=== PATIENT | female | born 1965 | race Caucasian/White ===

== ENCOUNTER 2017-10-14 07:43 | Emergency (ER) | payer BC ==
[2017-10-14 07:52] VITALS: BP 109/72
[2017-10-14] MEDS ORDERED: NORMAL SALINE 500 ML IV ONE (08:20)
[2017-10-14] MEDS ORDERED: HYDROMORPHONE HCL INJ/PF 2 MG/ML AMPULE IV ONE (08:22)
[2017-10-14] MEDS ORDERED: ONDANSETRON HCL INJ/PF 4 MG/2 ML SDV IV ONE ×2 (08:23→11:38)
--- NOTE | 2017-10-14 08:28 | ER Document Report ---
ED General - General Chief Complaint: Abdominal Pain Stated Complaint: ABDOMINAL PAIN Time Seen by Provider: 10/14/17 08:09 Notes: 52-year-old female with history of pancreatic cancer presents to the ER complaining of abdominal pain. Patient is being cared for by the cancer treatment centers of [facility] in [place]. The patient was seen at [facility] ER last night 2. Pain was treated and discharged home. Patient still complaining of pain in his come here. She is requesting a CT scan. Patient has no local contacts for her cancer. She is taking oral medication but has not had any chemo or radiation. The patient denies any fever chills. Complains of abdominal pain in the epigastrium she describes as 10 out of 10 severe this is been typical but more so on the last several days she has ever had. She states occasionally she will throw up clear but no hematemesis or coffee-ground emesis denies any black bloody or tarry stools. Denies chest pain denies shortness of breath. TRAVEL OUTSIDE OF THE [place] IN LAST 30 DAYS: No - Related Data Allergies/Adverse Reactions: iodine [Iodine] Allergy (Verified 10/14/17 08:11) Anaphylaxis latex Allergy (Verified 10/14/17 08:11) Past Medical History - Social History Smoking Status: Unknown if Ever Smoked Chew tobacco use (# tins/day): No Frequency of alcohol use: None Drug Abuse: None Family History: Hyperlipidemia Patient has suicidal ideation: No Patient has homicidal ideation: No - Past Medical History Cardiac Medical History: Reports: Hx Hypercholesterolemia Pulmonary Medical History: Denies: Hx Tuberculosis Renal/ Medical History: Denies: Hx Peritoneal Dialysis GI Medical History: Reports: Hx Hiatal Hernia, Hx Colonoscopy, Hx Endoscopy Past Surgical History: Reports: Hx Abdominal Surgery - hernia x2, Hx Cholecystectomy, Hx Herniorrhaphy, Hx Umbilical Hernia - Immunizations Hx Diphtheria, Pertussis, Tetanus Vaccination: No Review of Systems - Review of Systems Constitutional: No symptoms reported EENT: No symptoms reported Cardiovascular: No symptoms reported. denies: Chest pain Respiratory: No symptoms reported Gastrointestinal: No symptoms reported, Abdomen distended, Abdominal pain, Nausea, Vomiting. denies: Blood in vomit, Black stools, Rectal bleeding Genitourinary: No symptoms reported Female Genitourinary: No symptoms reported Musculoskeletal: No symptoms reported Skin: No symptoms reported Hematologic/Lymphatic: No symptoms reported Neurological/Psychological: No symptoms reported -: Yes All other systems reviewed and negative Physical Exam - Vital signs Vitals: Temp Pulse Resp BP Pulse Ox 97.7 F 113 H 16 109/72 91 L 10/14/17 07:49 10/14/17 07:49 10/14/17 07:49 10/14/17 07:49 10/14/17 07:49 - Notes Notes: GENERAL_APPEARANCE: well_nourished, alert, cooperative, appears uncomfortable VITALS: reviewed, see vital signs table. HEAD: no_swelling\tenderness on the head. EYES: PERRL, EOMI, conjunctiva_clear. NOSE: no_nasal_discharge. MOUTH: (-)decreased moisture. THROAT: no_tonsilar_inflammation, no_airway_obstruction. no_lymphadenopathy NECK: supple, no_neck_tenderness, (-)thyromegaly. BACK: no_back_tenderness. CHEST_WALL: no_chest_tenderness. LUNGS: no_wheezing, no_rales, no_rhonchi, (-)accessory muscle use, good air exchange bilateral. HEART: normal_rate, normal_rhythm, normal_S1, normal_S2, (-)S3, (-)S4, no_ murmur, no_rub. ABDOMEN: Slight distention, epigastric tenderness, soft,(-)guarding, (-)rebound , no_organomegaly, no_abd_masses. EXTREMITIES: good pulses in all_extremities, no_swelling\tenderness in the extremities, no_edema. SKIN: warm, dry, good_color, no_rash. MENTAL_STATUS: speech_clear, oriented_X_3, normal_affect, responds_ appropriately to questions. Course - Re-evaluation Re-evalutation: 10/14/17 08:27 52-year-old female who presents with abdominal pain nausea. The patient was seen several times last night and a ER in a another county. She was sent home. The patient did have a CT scan October 04 but is requesting another. We will get a repeat CT scan she is allergic to contrast. We will give the patient some IV fluids pain and nausea medicine. Check her labs and I will call Dr. Hand at the [facility] in [place]. 04/05/18 11:22 \ Spoke with Dr. Sagastume in [facility] in [place] -- on her visit there 10/04 -- Bilirubin was normal then. Today the bilirubin is elevated at 1.7. There is concern that there may be a ductal obstruction. Gallbladder surgically absent. I called [facility] which was the patient's preference for transfer there is no gastroenterology web content specialist today in case ERCP is needed. I spoke with the resident and Dr. Nunn who will accept the patient we are awaiting bed status. Continue to give IV fluids and pain medicine. - Vital Signs Vital signs: Temp Pulse Resp BP Pulse Ox 97.7 F 113 H 16 109/72 91 L 10/14/17 07:49 10/14/17 07:49 10/14/17 07:49 10/14/17 07:49 10/14/17 07:49 - Laboratory Result Diagrams: 10/14/17 08:58 10/14/17 08:58 Laboratory results interpreted by me: 10/14/17 10/14/17 10/14/17 08:58 08:58 10:04 RBC 3.60 L MCV 104 H MCH 33.8 H RDW 17.9 H Plt Count 118 L Sodium 136.7 L Creatinine 0.44 L Glucose 119 H Total Bilirubin 1.7 H Direct Bilirubin 0.8 H Alkaline Phosphatase 622 H Total Protein 5.7 L Albumin 3.0 L Urine Ketones 20 H Urine Urobilinogen 4.0 H Ur Leukocyte Esterase TRACE H Discharge - Discharge Clinical Impression: Vomiting Pancreatic cancer Qualifiers: Pancreatic malignancy location: other parts of pancreas Qualified Code(s): C25.7 - Malignant neoplasm of other parts of pancreas Condition: Fair Disposition: [facility] Unit Admitted: Medical Floor
[2017-10-14] MEDS ORDERED: FENTANYL CITRATE INJ/PF 100 MCG/2 ML AMPUL IV ONE ×2 (08:37→10:43)
[2017-10-14 09:21] LABS: ABSOLUTE BASOPHILS # (AUTO) 0.1 10^3/uL (0.0-0.2); ABSOLUTE EOSINOPHILS # (AUTO) 0.3 10^3/uL (0.0-0.6); ABSOLUTE LYMPHOCYTES (AUTO) 1.7 10^3/uL (0.5-4.7); ABSOLUTE MONOCYTES (AUTO) 0.6 10^3/uL (0.1-1.4); ABSOLUTE NEUT (AUTO) 6.3 10^3/uL (1.7-8.2); BASOPHILS % (AUTO) 0.8 % (0-2); EOSINOPHILS % (AUTO) 3.4 % (0-6); HEMATOCRIT 37.4 % (36.0-47.0); HEMOGLOBIN 12.2 g/dL (12.0-15.5); LYMPHOCYTES % (AUTO) 18.6 % (13-45); MEAN CORPUSCULAR HEMOGLOBIN 33.8 pg (27.0-33.4); MEAN CORPUSCULAR HGB CONC 32.6 g/dL (32.0-36.0); MEAN CORPUSCULAR VOLUME 104 fl (80-97); MONOCYTES % (AUTO) 6.2 % (3-13); PLATELET COUNT 118 10^3/uL (150-450); RED CELL DISTRIBUTION WIDTH 17.9 % (11.5-14.0); TOTAL CELLS COUNTED % (AUTO) 100 %; WHITE BLOOD COUNT 8.9 10^3/uL (4.0-10.5)
--- NOTE | 2017-10-14 09:32 | RADIOLOGY REPORT (SQ) ---
EXAM DESCRIPTION: CT ABD/PELVIS NO ORAL OR IV COMPLETED DATE/TIME: 10/14/2017 8:49 am REASON FOR STUDY: Abdominal pain abdominal pain COMPARISON: None. TECHNIQUE: CT scan of the abdomen and pelvis performed without intravenous or oral contrast. Images reviewed with lung, soft tissue, and bone windows. Reconstructed coronal and sagittal MPR images revi ewed. All images stored on PACS. All CT scanners at this facility use dose modulation, iterative reconstruction, and/or weight based d osing when appropriate to reduce radiation dose to as low as reasonably achievable (ALARA). [facility]: Dose Right [facility]: CareDose [facility]: Dose Right [facility]: Teradose 4D [facility]: Smart [employer] RADIATION DOSE: CT Rad equipment meets quality standard of care and radiation dose reduction techniq ues were employed. CTDIvol: 6.9 mGy. DLP: 365 mGy-cm.mGy. LIMITATIONS: None. FINDINGS: LOWER CHEST: Patchy left basilar airspace disease is present atelectasis versus pneumonia NON-CONTRASTED LIVER, SPLEEN, ADRENALS: Normal size liver with minimal intrahepatic biliary ductal pr ominence, similar compared to 07/14/2015. No discrete liver nodules on today's non contrasted images. 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 There are prominent left upper quad rant mesenteric venous collaterals from the splenic hilum to the superior mesenteric vein. Adrenal g lands unremarkable. PANCREAS: In the mid body of the pancreas, a 3.5 cm area of dense pancreatic parenchymal calcificatio n is present with atrophy of the tail distally. This likely represents an area of chronic pancreatit is. No current peripancreatic inflammatory change or pseudocyst is identified. GALLBLADDER: Surgically absent RIGHT KIDNEY AND URETER: A right-sided double-J stent is in place. No right-sided hydronephrosis. N o gross cysts or masses. 8 mm and 4 mm right lower pole intrarenal nonobstructive calculi, 400 Houn sfield units. No right hydroureter. LEFT KIDNEY AND URETER: No suspicious masses. Assessment limited by lack of IV contrast. No signifi cant calcifications. No hydronephrosis or hydroureter. AORTA AND RETROPERITONEUM: No aneurysm. No retroperitoneal masses or adenopathy. BOWEL AND PERITONEAL CAVITY: No obvious masses or inflammatory changes. No free fluid. APPENDIX: Normal. PELVIS, BLADDER, AND ABDOMINAL WALL:No abnormal masses. No free fluid. Bladder normal. Normal size f emale pelvic organs. BONES: New subtle foci of bony sclerosis in the bilateral proximal femoral metaphysis these, the left posterosuperior and right posterior iliac crest, the leftward half of the sacrum, and multiple lumba r vertebral bodies. Question metastatic disease. OTHER: No other significant finding. IMPRESSION: No CT evidence of acute pancreatitis. There is evidence of chronic calcific pancreatiti s and chronic splenic vein thrombosis Right-sided double-J stent in good positioning. No right hydronephrosis or hydroureter. Post cholecystectomy New multiple sclerotic foci throughout the visualized skeleton. Metastatic disease could not be excl uded. Left sacral insufficiency fracture with sclerosis may be present. COMMENT: Quality ID # [id number]: Final reports with documentation of one or more dose reduction techniques (e.g., Automated exposure control, adjustment of the mA and/or kV according to patient size, use of iterative reconstruction technique) TECHNICAL DOCUMENTATION: JOB ID: [id number] [email or web address]- All Rights Reserved Reading location - IP/workstation name: [email or web address]
[2017-10-14 09:37] LABS: ALANINE AMINOTRANSFERASE 24 U/L (9-52); ALKALINE PHOSPHATASE 622 U/L (38-126); ANION GAP 10 (5-19); ASPARTATE AMINO TRANSFERASE 18 U/L (14-36); BILIRUBIN,DIRECT 0.8 mg/dL (0.0-0.4); BILIRUBIN,TOTAL 1.7 mg/dL (0.2-1.3); BLOOD UREA NITROGEN 10 mg/dL (7-20); CALCIUM 8.7 mg/dL (8.4-10.2); CARBON DIOXIDE 23 mmol/L (22-30); CHLORIDE 104 mmol/L (98-107); GLUCOSE 119 mg/dL (75-110); LIPASE 58.4 U/L (23-300); POTASSIUM 4.3 mmol/L (3.6-5.0); SODIUM 136.7 mmol/L (137-145); TOTAL PROTEIN 5.7 g/dL (6.3-8.2)
[2017-10-14 10:29] LABS: APPEARANCE,URINE CLEAR; BILIRUBIN,URINE NEGATIVE (NEGATIVE); COLOR,URINE YELLOW; GLUCOSE, URINE NEGATIVE (NEGATIVE); KETONES,URINE 20 mg/dL (NEGATIVE); LEUKOCYTE ESTERASE,URINE TRACE (NEGATIVE); NITRITE,URINE NEGATIVE (NEGATIVE); PROTEIN,URINE NEGATIVE (NEGATIVE); URINE SPECIFIC GRAVITY 1.014
[2017-10-14] MEDS ORDERED: DEXTROSE 5%-NORMAL SALINE 1,000 ML IV ONE (11:38)
[2017-10-14] MEDS ORDERED: MORPHINE SULFATE 10 MG/ML INJ IV ONE (12:07)
[2017-10-14] MEDS: ONDANSETRON HCL INJ/PF 4 MG/2 ML SDV IV PRN ×2 (15:17→19:59)
[2017-10-14] MEDS: MORPHINE SULFATE 10 MG/ML INJ IV PRN ×2 (15:18→19:59)
== END 2017-10-14 21:35 | disposition short-term general hospital (02) ==
LOC: ER 07:43
DX: C25.9 Malignant neoplasm of pancreas, unspecified (principal); Z79.899 Other long term (current) drug therapy; R10.13 Epigastric pain; R11.2 Nausea with vomiting, unspecified; Z91.040 Latex allergy status; Z90.49 Acquired absence of other specified parts of digestive tract; Z87.892 Personal history of anaphylaxis; Z91.041 Radiographic dye allergy status
CPT/HCPCS: 36591; 96376; 99285; 96361; 96374; 96375; 36415; 83690; 85025; 80053; 81001; 74176; J3010; J2270; J2405; J7040

== ENCOUNTER 2017-11-28 20:17 | Inpatient (IN) | payer BC ==
[2017-11-28] MEDS ORDERED: IPRATROPIUM/ALBUTEROL 0.5-2.5 MG/3 ML AMPUL NEB ONE (20:27)
--- NOTE | 2017-11-28 20:31 | ER Document Report ---
ED General - General Stated Complaint: SHORTNESS OF BREATH Time Seen by Provider: 11/28/17 20:24 Cannot obtain history due to: Mentally challenged Notes: Patient is a 52-year-old female with a past medical history of pancreatic cancer currently undergoing chemotherapy, history of COPD with oxygen dependence at baseline who presents by EMS with 1 week of persistent cough, shortness of breath, and feeling more fatigued than normal. She also states that she has not been able to take any of her medications for the past week due to difficulty swallowing. Patient is a very poor historian, unable to give me essentially any additional details beyond her initial chief complaint. She is oriented only to person. TRAVEL OUTSIDE OF THE [place] IN LAST 30 DAYS: No - Related Data Allergies/Adverse Reactions: iodine [Iodine] Allergy (Verified 10/14/17 08:11) Anaphylaxis latex Allergy (Verified 10/14/17 08:11) Past Medical History - General Information source: Patient, Emergency Med Personnel, [facility] Records Cannot obtain history due to: Mentally challenged, Altered mental status - Social History Smoking Status: Former Smoker Frequency of alcohol use: None Drug Abuse: None Lives with: Family Family History: Reviewed & Not Pertinent, Hyperlipidemia - Past Medical History Cardiac Medical History: Reports: Hx Hypercholesterolemia Pulmonary Medical History: Denies: Hx Tuberculosis Renal/ Medical History: Denies: Hx Peritoneal Dialysis GI Medical History: Reports: Hx Hiatal Hernia, Hx Colonoscopy, Hx Endoscopy Past Surgical History: Reports: Hx Abdominal Surgery - hernia x2, Hx Cholecystectomy, Hx Herniorrhaphy, Hx Umbilical Hernia - Immunizations Hx Diphtheria, Pertussis, Tetanus Vaccination: No Review of Systems - Review of Systems Notes: Constitutional: Negative for fever. HENT: Negative for sore throat. Eyes: Negative for visual changes. Cardiovascular: Negative for chest pain. Respiratory: Positive for cough and shortness of breath. Gastrointestinal: Positive for abdominal distention Genitourinary: Negative for dysuria. Musculoskeletal: Negative for back pain. Skin: Negative for rash. Neurological: Negative for headaches, weakness or numbness. 10 point ROS negative except as marked above and in HPI. Physical Exam - Vital signs Vitals: Resp 13 11/28/17 20:46 Notes: PHYSICAL EXAMINATION: GENERAL: Appears much older than stated age, chronically ill in appearance but in no distress HEAD: Atraumatic, normocephalic. EYES: Pupils equal round and reactive to light, extraocular movements intact, mildly icteric sclera, conjunctiva are normal. ENT: nares patent, oropharynx clear without exudates. Extremely dry mucous membranes. NECK: Normal range of motion, supple without lymphadenopathy LUNGS: Slightly diminished at the bases bilaterally. No wheezes or rales. HEART: Regular rate and rhythm without murmurs ABDOMEN: Soft but distended abdomen, nontender, normoactive bowel sounds. No guarding, no rebound. No masses appreciated. EXTREMITIES: Normal range of motion, no pitting or edema. No cyanosis. NEUROLOGICAL: No focal neurological deficits. Moves all extremities spontaneously and on command. PSYCH: Somewhat somnolent, oriented only to person SKIN: Poor skin turgor, dodson yellowish tint to the skin Course - Re-evaluation Re-evalutation: 11/28/17 20:29 Patient presents profoundly confused, oriented only to person. She complains of cough and shortness of breath but does not appear to understand exactly what is going on or why she is here. She believes it is 1982, she does not know who the president is and she is unable to tell me when she last received chemotherapy. Patient has apparent abdominal ascites some mild upper abdominal tenderness on examination and a rattling cough although but no overt diminished breath sounds on exam. She has oxygen dependency at baseline of 2 L by nasal cannula. She is in no overt respiratory distress. Patient states that she follows in the cancer centers of [place] for treatment. Review of records shows in October she was transferred to [facility] when she presented with abdominal pain and elevated bilirubin. 11/29/17 00:23 CT scan of the abdomen pelvis shows a new 12 cm lesion in the right lobe of the liver, multiple new bony lesions consistent with rapid progression of the patient's pancreatic cancer despite ongoing chemotherapy. Patient's chest x- ray also shows a bibasilar pneumonia. She has been started on levofloxacin. I have discussed at length with the patient and the family that she is terminally ill at this time point with rapid progression of her malignancy that is failing to respond to chemotherapy. I have advocated that the patient be made hospice. The family is currently considering this. I have discussed with the hospitalist for admission 11/29/17 0100 After reviewing the poor prognosis the family and patient have agreed to a DNR/ DNI status and are interested in hospice at time of discharge. They have agreed to IV antibiotics while the patient is in the hospital but they are otherwise planning for comfort measures. I have discussed this with the hospitalist who is excepted for admission. - Vital Signs Vital signs: Temp Pulse Resp BP Pulse Ox 97.4 F 95 19 109/53 L 96 11/29/17 03:00 11/29/17 03:00 11/29/17 03:00 11/29/17 03:00 11/29/17 03:00 - Laboratory Result Diagrams: 11/28/17 21:47 11/28/17 21:47 Laboratory results interpreted by me: 11/28/17 11/28/17 21:47 21:47 WBC 16.4 H RBC 2.94 L Hgb 10.5 L Hct 32.1 L MCV 109 H MCH 35.7 H RDW 24.0 H Plt Count 58 L Seg Neuts % (Manual) 79 H Band Neutrophils % 9 H Lymphocytes % (Manual) 5 L Abs Neuts (Manual) 14.4 H Absolute Eos (Manual) 0.7 H Creatinine 0.40 L Glucose 131 H Total Bilirubin 3.5 H Direct Bilirubin 2.3 H AST 45 H Alkaline Phosphatase 1111 H Total Protein 6.0 L Albumin 2.7 L - Diagnostic Test Radiology reviewed: Image reviewed, Reports reviewed Radiology results interpreted by me: 11/29/17 04:03 CT head: No acute intracranial bleed or evidence of metastases Chest x-ray: Bibasilar infiltrates - EKG Interpretation by Me Additional EKG results interpreted by me: 11/28/17 21:42 Sinus rhythm. Rate 96. No ST elevations or depressions. QTC is 420. Discharge - Discharge Clinical Impression: Cough, Shortness of breath Altered mental status Qualifiers: Altered mental status type: disorientation Qualified Code(s): R41.0 - Disorientation, unspecified Pancreatic cancer Qualifiers: Pancreatic malignancy location: unspecified Qualified Code(s): C25.9 - Malignant neoplasm of pancreas, unspecified Condition: Fair Disposition: ADMITTED INPATIENT Admitting Provider: Hospitalist Unit Admitted: Telemetry
[2017-11-28] MEDS ORDERED: NORMAL SALINE 1000 ML 1,000 ML IV ONE (21:38)
[2017-11-28 22:02] LABS: HEMATOCRIT 32.1 % (36.0-47.0); HEMOGLOBIN 10.5 g/dL (12.0-15.5); MEAN CORPUSCULAR HEMOGLOBIN 35.7 pg (27.0-33.4); MEAN CORPUSCULAR HGB CONC 32.6 g/dL (32.0-36.0); MEAN CORPUSCULAR VOLUME 109 fl (80-97); RED BLOOD COUNT 2.94 10^6/uL (3.72-5.28); WHITE BLOOD COUNT 16.4 10^3/uL (4.0-10.5)
[2017-11-28 22:05] LABS: PLATELET COUNT 58 10^3/uL (150-450)
[2017-11-28 22:17] LABS: ALANINE AMINOTRANSFERASE 34 U/L (9-52); ALBUMIN 2.7 g/dL (3.5-5.0); ALKALINE PHOSPHATASE 1111 U/L (38-126); ANION GAP 10 (5-19); ASPARTATE AMINO TRANSFERASE 45 U/L (14-36); BILIRUBIN,DIRECT 2.3 mg/dL (0.0-0.4); BILIRUBIN,TOTAL 3.5 mg/dL (0.2-1.3); BLOOD UREA NITROGEN 20 mg/dL (7-20); CALCIUM 8.4 mg/dL (8.4-10.2); CARBON DIOXIDE 29 mmol/L (22-30); CHLORIDE 99 mmol/L (98-107); GLUCOSE 131 mg/dL (75-110); LIPASE 28.5 U/L (23-300); POTASSIUM 3.6 mmol/L (3.6-5.0)
[2017-11-28 22:23] LABS: ABSOLUTE LYMPHOCYTES# (MANUAL) 0.8 10^3/uL (0.5-4.7); ABSOLUTE MONOCYTES # (MANUAL) 0.5 10^3/uL (0.1-1.4); ABSOLUTE NEUTROPHILS# (MANUAL) 14.4 10^3/uL (1.7-8.2); BAND NEUTROPHILS % (MANUAL) 9 % (3-5); BASOPHILS % (MANUAL) 0 % (0-2); EOSINOPHILS % (MANUAL) 4 % (0-6); LYMPHOCYTES % (MANUAL) 5 % (13-45); MONOCYTES % (MANUAL) 3 % (3-13); SEGMENTED NEUTROPHILS % (MAN) 79 % (42-78); TOTAL CELLS COUNTED 100
[2017-11-28 22:29] LABS: HYPOCHROMASIA 1+; POIKILOCYTOSIS SLIGHT; POLYCHROMASIA 1+; TOXIC VACUOLATION PRESENT
[2017-11-28 22:30] LABS: ANISOCYTOSIS 3+; PLATELET COMMENT DECREASED; SCHISTOCYTES SLIGHT; TARGET CELLS SLIGHT
--- NOTE | 2017-11-28 23:04 | RADIOLOGY REPORT (SQ) ---
EXAM DESCRIPTION: CT HEAD WITHOUT COMPLETED DATE/TIME: 11/28/2017 10:46 pm REASON FOR STUDY: ams COMPARISON: None. TECHNIQUE: Axial images acquired through the brain without intravenous contrast. Images reviewed wi th bone, brain and subdural windows. Images stored on PACS. All CT scanners at this facility use dose modulation, iterative reconstruction, and/or weight based d osing when appropriate to reduce radiation dose to as low as reasonably achievable (ALARA). [facility]: Dose Right [facility]: CareDose [facility]: Dose Right [facility]: Teradose 4D [facility]: Smart [employer] RADIATION DOSE: CT Rad equipment meets quality standard of care and radiation dose reduction techniq ues were employed. CTDIvol: 53.2 mGy. DLP: 1097 mGy-cm. mGy. LIMITATIONS: Moderate obliquity. FINDINGS: VENTRICLES: Normal size and contour. CEREBRUM: No masses. No hemorrhage. No midline shift. No evidence for acute infarction. Normal gra y/white matter differentiation. No areas of low density in the white matter. CEREBELLUM: No masses. No hemorrhage. No alteration of density. No evidence for acute infarction. EXTRAAXIAL SPACES: No fluid collections. No masses. ORBITS AND GLOBE: No intra- or extraconal masses. Normal contour of globe without masses. CALVARIUM: No fracture. PARANASAL SINUSES: No fluid or mucosal thickening. SOFT TISSUES: No mass or hematoma. OTHER: No other significant finding. IMPRESSION: No acute intracranial findings. EVIDENCE OF ACUTE STROKE: NO. COMMENT: Quality ID # 436: Final reports with documentation of one or more dose reduction techniques (e.g., Automated exposure control, adjustment of the mA and/or kV according to patient size, use of iterative reconstruction technique) TECHNICAL DOCUMENTATION: JOB ID: [id number] [place]-72 2010 [employer]- All Rights Reserved Reading location - IP/workstation name: [email or web address]
--- NOTE | 2017-11-28 23:10 | RADIOLOGY REPORT (SQ) ---
EXAM DESCRIPTION: CHEST SINGLE VIEW COMPLETED DATE/TIME: 11/28/2017 10:24 pm REASON FOR STUDY: sob COMPARISON: 08/20/2015 EXAM PARAMETERS: NUMBER OF VIEWS: One view. TECHNIQUE: Single frontal radiographic view of the chest acquired. RADIATION DOSE: NA LIMITATIONS: None. FINDINGS: LUNGS AND PLEURA: Bibasilar airspace -nodular opacities. Small left pleural effusion. No pneumothorax. MEDIASTINUM AND HILAR STRUCTURES: Stable. HEART AND VASCULAR STRUCTURES: Stable. BONES: No acute findings. HARDWARE: Left chest port. OTHER: No other significant finding. IMPRESSION: Bibasilar airspace -nodular opacities. Small left pleural effusion. TECHNICAL DOCUMENTATION: JOB ID: [id number] [place]-72 2010 [employer]- All Rights Reserved Reading location - IP/workstation name: [email or web address]
[2017-11-28] MEDS ORDERED: LEVOFLOXACIN 750 MG/D5W RTU 750 MG/150 ML RTUPB IV ONE (23:15)
--- NOTE | 2017-11-28 23:29 | RADIOLOGY REPORT (SQ) ---
EXAM DESCRIPTION: CT ABD/PELVIS NO ORAL OR IV COMPLETED DATE/TIME: 11/28/2017 10:46 pm REASON FOR STUDY: swelling, confusion, ascieties COMPARISON: 10/14/2017 TECHNIQUE: CT scan of the abdomen and pelvis performed without intravenous or oral contrast. Images reviewed with lung, soft tissue, and bone windows. Reconstructed coronal and sagittal MPR images revi ewed. All images stored on PACS. All CT scanners at this facility use dose modulation, iterative reconstruction, and/or weight based d osing when appropriate to reduce radiation dose to as low as reasonably achievable (ALARA). [facility]: Dose Right [facility]: CareDose [facility]: Dose Right [facility]: Teradose 4D [facility]: [employer] RADIATION DOSE: CT Rad equipment meets quality standard of care and radiation dose reduction techniq ues were employed. CTDIvol: 14.4 mGy. DLP: 741 mGy-cm.mGy. LIMITATIONS: None. FINDINGS: LOWER CHEST: Moderate bilateral pleural effusions. Increased basilar pulmonary nodularity . NON-CONTRASTED LIVER, SPLEEN, ADRENALS: 12 cm hypodense mass in the right lobe of the liver. Scatter ed smaller additional hypodensities. PANCREAS: Similar chronic calcifications. GALLBLADDER: Surgically absent. RIGHT KIDNEY AND URETER: Right nephroureteral stent. No suspicious masses. Assessment limited by lac k of IV contrast. Multiple parenchymal calcifications. No hydronephrosis or hydroureter. LEFT KIDNEY AND URETER: No suspicious masses. Assessment limited by lack of IV contrast. No signifi cant calcifications. No hydronephrosis or hydroureter. AORTA AND RETROPERITONEUM: No aneurysm. No retroperitoneal masses or adenopathy. BOWEL AND PERITONEAL CAVITY: No obvious masses or inflammatory changes. Small amount of free fluid. APPENDIX: Normal. PELVIS, BLADDER, AND ABDOMINAL WALL:Moderate free fluid. Bladder normal. BONES: No acute findings. Multifocal osseous metastatic disease. Nondisplaced left sacral fracture. OTHER: No other significant finding. IMPRESSION: Moderate bilateral pleural effusions. Increased basilar pulmonary nodularity. 12 cm hypodense mass in the right lobe of the liver. Small amount of ascites and moderate pelvic rinku e fluid. Multifocal osseous metastatic disease. COMMENT: Quality ID # [id number]: Final reports with documentation of one or more dose reduction techniques (e.g., Automated exposure control, adjustment of the mA and/or kV according to patient size, use of iterative reconstruction technique) TECHNICAL DOCUMENTATION: JOB ID: [id number] [place]-72 2010 [employer]- All Rights Reserved Reading location - IP/workstation name: [email or web address]
--- NOTE | 2017-11-29 00:45 | EKG REPORT ---
SEVERITY:- OTHERWISE NORMAL ECG - SINUS RHYTHM LOW VOLTAGE IN FRONTAL LEADS : Confirmed by: Doc Munoz 29-Nov-2017 00:44:36
[2017-11-29] MEDS ORDERED: ONDANSETRON HCL INJ/PF 4 MG/2 ML SDV IV PRN (00:48)
[2017-11-29] MEDS ORDERED: OXYCODONE-ACETAMINOPHEN 5-325 MG TABLET PO PRN (00:48)
[2017-11-29] MEDS ORDERED: ACETAMINOPHEN 325 MG TABLET PO PRN (00:48)
[2017-11-29] MEDS ORDERED: DOXYCYCLINE HYCLATE INJ 100 MG VIAL IV PRN (01:06)
--- NOTE | 2017-11-29 01:08 | PDOC H&P ---
History of Present Illness Admission Date/PCP: 11/29/17 00:43 History of Present Illness: MELCHOR GARZA is a 52 year old very pleasant but unfortunate female patient with stage IV pancreatic cancer with metastasis to the lungs, liver and bone, presents with chief complaint of one-week history of generalized body weakness decreased appetite poor oral intake and persistent dry cough. She has also associated dyspnea and dysphagia. Her blood work shows leukocytosis of 16,000 and her chest x-ray reported as bibasilar opacity. There is no report of fever, chest pain, nausea, vomiting or abdominal pain and diarrhea. There is no urinary complaints. No headache or dizziness. They are attending after they have long discussion with her and other family members they made her DNR and requested hospice placement. Past Medical History Cardiac Medical History: Reports: Hyperlipidema Pulmonary Medical History: Denies: Tuberculosis GI Medical History: Reports: Hiatal Hernia Past Surgical History Past Surgical History: Reports: Cholecystectomy, Herniorrhaphy Social History Lives with: Family Smoking Status: Former Smoker Frequency of Alcohol Use: Occasional Hx Recreational Drug Use: No Hx Prescription Drug Abuse: No - Advance Directive Resuscitation Status: Do Not Resuscitate Family History Family History: Reviewed & Not Pertinent, Hyperlipidemia Parental Family History Reviewed: Yes Children Family History Reviewed: Yes Sibling(s) Family History Reviewed.: Yes Medication/Allergy Home Medications: Lansoprazole [Prevacid 30 mg Odt Tablet] 30 mg PO DAILY 06/16/13 Doxycycline Hyclate 100 mg PO Q12H #16 capsule 06/18/13 Ketorolac Tromethamine 10 mg PO DAILY #20 tablet 06/18/13 Promethazine HCl [Phenergan 25 mg Tablet] 25 mg PO Q4HP PRN #20 tablet 06/18/13 Hydrocodone/Acetaminophen [[place] 5-325 mg Tablet] 1 tab PO Q6HP PRN #14 tablet 06/09/15 Ondansetron HCl [Zofran 4 mg Tablet] 1 tab PO Q4H PRN #10 tablet 06/09/15 Ondansetron [Zofran Odt 4 mg Tablet] 1 - 2 tab PO Q4H #30 tab.rapdis 07/14/15 Oxycodone HCl/Acetaminophen [Percocet 5-325 mg Tablet] 1 - 2 tab PO ASDIR PRN # 30 tablet 07/14/15 Ketorolac Tromethamine [Toradol 10 mg Tablet] 10 mg PO Q6HP PRN #60 tablet 08/20 Oxycodone HCl/Acetaminophen [Percocet 10-325 Mg Tablet] 1 each PO Q4 PRN #60 tablet 08/20/15 Allergies/Adverse Reactions: iodine [Iodine] Allergy (Verified 10/14/17 08:11) Anaphylaxis latex Allergy (Verified 10/14/17 08:11) Review of Systems Constitutional: PRESENT: as per HPI Eyes: PRESENT: as per HPI Cardiovascular: PRESENT: as per HPI Respiratory: PRESENT: as per HPI Gastrointestinal: PRESENT: as per HPI Physical Exam Vital Signs: Temp Pulse Resp BP Pulse Ox 98.6 F 15 118/69 95 11/28/17 23:18 11/28/17 22:01 11/28/17 23:00 11/28/17 23:00 General appearance: PRESENT: mild distress Head exam: PRESENT: atraumatic, normocephalic Mouth exam: PRESENT: dry mucosa Respiratory exam: PRESENT: decreased breath sounds Cardiovascular exam: PRESENT: RRR. ABSENT: diastolic murmur, rubs, systolic murmur GI/Abdominal exam: PRESENT: other - Distended hepatomegaly Results Impressions: Chest X-Ray 11/28/17 20:26 IMPRESSION: Bibasilar airspace -nodular opacities. Small left pleural effusion. Abdomen/Pelvis CT 11/28/17 20:31 IMPRESSION: Moderate bilateral pleural effusions. Increased basilar pulmonary nodularity. 12 cm hypodense mass in the right lobe of the liver. Small amount of ascites and moderate pelvic free fluid. Multifocal osseous metastatic disease. Head CT 11/28/17 21:37 IMPRESSION: No acute intracranial findings. EVIDENCE OF ACUTE STROKE: NO. Assessment & Plan - Diagnosis (1) Pneumonia Qualifiers: Laterality: bilateral Is this a current diagnosis for this admission?: Yes Plan: Patient has been started empirically on cefepime and doxycycline (2) Pancreatic cancer Is this a current diagnosis for this admission?: Yes Plan: Patient's condition is terminal. DNR/DNI Hospice placement (3) COPD (chronic obstructive pulmonary disease) Qualifiers: Emphysema type: unspecified Is this a current diagnosis for this admission?: Yes Plan: As needed DuoNeb - Time Time Spent: 30 to 50 Minutes - Inpatient Certification Medical Necessity: Need For IV Fluids, Need for IV Antibiotics
[2017-11-29] MEDS ORDERED: CEFEPIME 2 GM/D5W RTU 2 GM/50 ML RTUPB IV ONE ×2 (01:15→04:09)
[2017-11-29] MEDS ORDERED: DOXYCYCLINE HYCLATE 100 MG in DEXTROSE 5%-WATER 250 ML IV ONE (01:15)
[2017-11-29] MEDS: IPRATROPIUM/ALBUTEROL 0.5-2.5 MG/3 ML AMPUL NEB SCH ×4 (02:20→20:06)
[2017-11-29] MEDS ORDERED: DOXYCYCLINE HYCLATE INJ 100 MG VIAL ONE (05:44)
[2017-11-29] MEDS: LANSOPRAZOLE 30 MG TAB.RAP.DR PO SCH (06:23)
[2017-11-29] MEDS: ENOXAPARIN SODIUM INJ 40 MG/0.4 ML DISP.SYRIN SUBCUT SCH (09:33)
[2017-11-29] MEDS: PROMETHAZINE HCL 25 MG TABLET PO PRN ×2 (11:55→17:38)
[2017-11-29] MEDS ORDERED: LANSOPRAZOLE 30 MG TAB.RAP.DR PO ONE (12:00)
[2017-11-29] MEDS ORDERED: APIXABAN 5 MG TABLET PO ONE (12:00)
[2017-11-29] MEDS ORDERED: TIOTROPIUM BROMIDE DPI 5 CAP/KIT (18 MCG/CAP) IH ONE (14:00)
[2017-11-29] MEDS: HYDROMORPHONE HCL INJ/PF 2 MG/ML AMPULE IV PRN ×4 (14:12→21:03)
[2017-11-29] MEDS: APIXABAN 5 MG TABLET PO SCH (17:06)
[2017-11-29] MEDS: CEFEPIME 2 GM/D5W RTU 2 GM/50 ML RTUPB IV SCH (17:38)
[2017-11-29] MEDS: MEGESTROL ACETATE 20 MG TABLET PO SCH (17:38)
[2017-11-29] MEDS: DOXYCYCLINE HYCLATE 100 MG in DEXTROSE 5%-WATER 250 ML IV SCH (18:28)
[2017-11-29] MEDS: OXYCODONE HCL IR 5 MG TABLET PO PRN (19:56)
[2017-11-29] MEDS: TEMAZEPAM 15 MG CAPSULE PO SCH (21:03)
[2017-11-29] MEDS: GABAPENTIN 400 MG CAPSULE PO SCH (21:03)
[2017-11-30] MEDS: HYDROMORPHONE HCL INJ/PF 2 MG/ML AMPULE IV PRN ×5 (01:52→15:53)
[2017-11-30] MEDS: RINGERS SOLUTION,LACTATED 1,000 ML IV PRN (01:54)
[2017-11-30] MEDS: IPRATROPIUM/ALBUTEROL 0.5-2.5 MG/3 ML AMPUL NEB SCH ×4 (02:04→19:48)
--- NOTE | 2017-11-30 02:05 | Progress Note ---
<SHEILA LLANOS A - Last Filed: 11/30/17 01:59> Provider Note Provider Note: Agree with accounts payable coordinator's plan of care. Patient seen this morning on rounds. Resting in bed on home dose of O2 via nasal cannula. Complaining of nausea, poor pain control, and SOB. Abdomen is visibly distended, hyperactive bowel sounds. Lungs clear to auscultation. Discussed the option of a paracentesis with patient and family, explained that this would mostly be palliative to help with symptoms of SOB and abdominal discomfort. No decision made today. 1. Healthcare Associated PNA: Continue cefepime and doxycycline for HAP. 2. Pancreatic Cancer: Patient currently undergoing oral chemotherapy treatment. Imaging done during this hospitalization demonstrate rapid progression and metastasis of her pancreatic cancer. New lesion found on liver and multiple nodules found in lungs. Patient and family expressed interest in hospice. Discharge planning aware. Appreciate their assistance. 3. Pain control: 0.5mg dilaudid IV PRN for pain. 4. Nausea: PO phenergan PRN <GHANSHYAM BLACKMAN - Last Filed: 11/30/17 15:24> Provider Note Provider Note: Co signing the note for Sheila Izquierdo NP.
[2017-11-30 05:17] LABS: HEMATOCRIT 31.4 % (36.0-47.0); HEMOGLOBIN 10.2 g/dL (12.0-15.5); MEAN CORPUSCULAR HEMOGLOBIN 35.5 pg (27.0-33.4); MEAN CORPUSCULAR HGB CONC 32.4 g/dL (32.0-36.0); MEAN CORPUSCULAR VOLUME 110 fl (80-97); RED BLOOD COUNT 2.87 10^6/uL (3.72-5.28); RED CELL DISTRIBUTION WIDTH 23.9 % (11.5-14.0); WHITE BLOOD COUNT 15.1 10^3/uL (4.0-10.5)
[2017-11-30 05:19] LABS: ANION GAP 8 (5-19); BLOOD UREA NITROGEN 10 mg/dL (7-20); CARBON DIOXIDE 30 mmol/L (22-30); CHLORIDE 103 mmol/L (98-107); GLUCOSE 117 mg/dL (75-110); POTASSIUM 3.2 mmol/L (3.6-5.0); SODIUM 140.7 mmol/L (137-145)
[2017-11-30] MEDS: CEFEPIME 2 GM/D5W RTU 2 GM/50 ML RTUPB IV SCH ×2 (05:41→18:09)
[2017-11-30] MEDS: LANSOPRAZOLE 30 MG TAB.RAP.DR PO SCH (05:41)
[2017-11-30] MEDS: LANSOPRAZOLE 15 MG TAB.RAP.DR PO SCH (05:41)
[2017-11-30 06:06] LABS: PLATELET COUNT 54 10^3/uL (150-450)
[2017-11-30 06:13] LABS: ABSOLUTE LYMPHOCYTES# (MANUAL) 0.3 10^3/uL (0.5-4.7); ABSOLUTE MONOCYTES # (MANUAL) 0.9 10^3/uL (0.1-1.4); ABSOLUTE NEUTROPHILS# (MANUAL) 12.7 10^3/uL (1.7-8.2); BAND NEUTROPHILS % (MANUAL) 9 % (3-5); BASOPHILS % (MANUAL) 0 % (0-2); EOSINOPHILS % (MANUAL) 8 % (0-6); LYMPHOCYTES % (MANUAL) 2 % (13-45); MONOCYTES % (MANUAL) 6 % (3-13); SEGMENTED NEUTROPHILS % (MAN) 74 % (42-78); TOTAL CELLS COUNTED 100
[2017-11-30 06:16] LABS: PLATELET COMMENT DECREASED
[2017-11-30 06:19] LABS: ANISOCYTOSIS 3+; POIKILOCYTOSIS SLIGHT; POLYCHROMASIA 1+; TARGET CELLS SLIGHT
[2017-11-30 06:20] LABS: TOXIC GRANULATION 1+; TOXIC VACUOLATION PRESENT
[2017-11-30 06:23] LABS: PROMYELOCYTES % (MANUAL) 1 % (0)
[2017-11-30] MEDS: DOXYCYCLINE HYCLATE 100 MG in DEXTROSE 5%-WATER 250 ML IV SCH ×2 (06:47→18:39)
[2017-11-30] MEDS: GABAPENTIN 300 MG CAPSULE PO SCH ×2 (07:36→11:50)
[2017-11-30] MEDS: OXYCODONE HCL IR 5 MG TABLET PO PRN ×3 (09:03→19:39)
[2017-11-30] MEDS: ENOXAPARIN SODIUM INJ 40 MG/0.4 ML DISP.SYRIN SUBCUT SCH (09:40)
[2017-11-30] MEDS: MEGESTROL ACETATE 20 MG TABLET PO SCH ×2 (10:09→18:10)
[2017-11-30] MEDS: TIOTROPIUM BROMIDE DPI 5 CAP/KIT (18 MCG/CAP) IH SCH (10:09)
[2017-11-30] MEDS: APIXABAN 5 MG TABLET PO SCH (10:11)
[2017-11-30] MEDS ORDERED: OXYCODONE HCL SR 10 MG TABLET PO ONE (12:00)
[2017-11-30 12:15] LABS: PATH REVIEW PATHOLOGIST REVIEWED
--- NOTE | 2017-11-30 13:54 | RADIOLOGY REPORT (SQ) ---
EXAM DESCRIPTION: U/S ABDOMEN LIMITED W/O DOP COMPLETED DATE/TIME: 11/30/2017 1:32 pm REASON FOR STUDY: palliative; pancreatic CA w/ liver mets ascitis COMPARISON: July 2017 TECHNIQUE: Limited sonographic sections through the abdomen were obtained. LIMITATIONS: None. FINDINGS: No intra-abdominal ascitic fluid is identified. Bilateral pleural effusions are identifie d IMPRESSION: No intra-abdominal ascitic fluid is identified. Bilateral pleural effusions are identif ied. TECHNICAL DOCUMENTATION: JOB ID: [id number] [employer]- All Rights Reserved Reading location - IP/workstation name: [email or web address]
--- NOTE | 2017-11-30 17:53 | PDOC PROGRESS REPORT ---
<YENI MOCTEZUMA - Last Filed: 11/30/17 17:30> Subjective Progress Note for:: 11/30/17 Subjective:: The patient is a 52-year-old female with past medical history significant for hyperlipidemia and stage IV pancreatic cancer with metastasis to the lungs, liver, and bone who was admitted on 11/29/17 for bibasilar pneumonia. The patient is seen on morning rounds. She is found resting in bed on supplemental oxygen at 3 lpm with her family members present. They are meeting with the [facility] pad making machine operator today. The patient reports that her pain is better controlled today. They are hoping to be discharged to home soon with hospice services. We discussed a palliative paracentesis for comfort; the patient and family wish to pursue this today. Discussed transition back to oral medications for medication adjustment in preparation for discharge to home within the next 24-48 hours. Patient and family are agreeable and are made aware to notify nurse for any discomfort so that medication adjustments can be aggressively managed. They have no other questions or concerns today. Reason For Visit: PNEUMONIA, STAGE IV PANCREATIC CANCER Physical Exam Vital Signs: Temp Pulse Resp BP Pulse Ox 98.1 F 118 H 20 90/68 L 90 L 11/30/17 15:02 11/30/17 15:02 11/30/17 15:02 11/30/17 15:02 11/30/17 15:02 Intake & Output 11/29/17 11/30/17 12/01/17 06:59 06:59 06:59 Intake Total 25 3098 Output Total 0 1120 Balance 1977 Weight 59.4 kg 59.4 kg General appearance: PRESENT: disheveled, mild distress, thin, well-developed Head exam: PRESENT: atraumatic, normocephalic Eye exam: PRESENT: conjunctiva pink, EOMI, PERRLA. ABSENT: scleral icterus Ear exam: PRESENT: normal external ear exam Mouth exam: PRESENT: moist, tongue midline Neck exam: ABSENT: carotid bruit, JVD, lymphadenopathy, thyromegaly Respiratory exam: PRESENT: decreased breath sounds - bibasilar, symmetrical, tachypnea, other - supplemental oxygen via NC. ABSENT: rales, rhonchi, wheezes Cardiovascular exam: PRESENT: RRR, +S1, +S2, tachycardia. ABSENT: diastolic murmur, rubs, systolic murmur Pulses: PRESENT: normal dorsalis pedis pul Vascular exam: PRESENT: normal capillary refill GI/Abdominal exam: PRESENT: distended, firm, hypoactive bowel sounds. ABSENT: guarding, mass, organolmegaly, rebound, tenderness Rectal exam: PRESENT: deferred Extremities exam: PRESENT: full ROM. ABSENT: calf tenderness, clubbing, pedal edema Neurological exam: PRESENT: oriented to person, oriented to place, oriented to time, oriented to situation, CN II-XII grossly intact, other - Arouses easily; quickly falls during conversational pauses. ABSENT: motor sensory deficit Psychiatric exam: PRESENT: appropriate affect, normal mood. ABSENT: homicidal ideation, suicidal ideation Skin exam: PRESENT: dry, intact, warm. ABSENT: cyanosis, rash Results Laboratory Results: 11/30/17 04:50 11/30/17 04:50 11/30/17 11/30/17 04:50 04:50 WBC 15.1 H RBC 2.87 L Hgb 10.2 L Hct 31.4 L MCV 110 H MCH 35.5 H MCHC 32.4 RDW 23.9 H Plt Count 54 L Seg Neutrophils % Not Reportable Lymphocytes % Not Reportable Monocytes % Not Reportable Eosinophils % Not Reportable Basophils % Not Reportable Absolute Neutrophils Not Reportable Absolute Lymphocytes Not Reportable Absolute Monocytes Not Reportable Absolute Eosinophils Not Reportable Absolute Basophils Not Reportable Sodium 140.7 Potassium 3.2 L Chloride 103 Carbon Dioxide 30 Anion Gap 8 BUN 10 Creatinine 0.36 L Est GFR ( Amer) > 60 Est GFR (Non-Af Amer) > 60 Glucose 117 H Calcium 8.0 L Impressions: Chest X-Ray 11/28/17 20:26 IMPRESSION: Bibasilar airspace -nodular opacities. Small left pleural effusion. Abdomen/Pelvis CT 11/28/17 20:31 IMPRESSION: Moderate bilateral pleural effusions. Increased basilar pulmonary nodularity. 12 cm hypodense mass in the right lobe of the liver. Small amount of ascites and moderate pelvic free fluid. Multifocal osseous metastatic disease. Head CT 11/28/17 21:37 IMPRESSION: No acute intracranial findings. EVIDENCE OF ACUTE STROKE: NO. Abdomen Ultrasound 11/30/17 00:00 IMPRESSION: No intra-abdominal ascitic fluid is identified. Bilateral pleural effusions are identified. Assessment & Plan - Diagnosis (1) Pneumonia QualifierTitle: Laterality: bilateral Is this a current diagnosis for this admission?: Yes Plan: The patient was admitted with pneumonia evidenced by tachypnea, tachycardia, hypoxia while on room air, leukocytosis (WBC 16.4), and chest x-ray demonstrating bibasilar infiltrates and a left mild pleural effusion. Blood cultures have no growth to date. The patient is admitted to the medical floor on continuous cardiac telemetry. She is provided supplemental oxygen as needed to maintain oxygen saturations greater than 88% She is empirically placed on cefepime and doxycycline for coverage of healthcare associated pneumonia. Scheduled and as needed nebulizer treatments are available. (2) Pancreatic cancer QualifierTitle: Pancreatic malignancy location: unspecified Qualified Code(s): C25.9 - Malignant neoplasm of pancreas, unspecified Is this a current diagnosis for this admission?: Yes Plan: The patient is currently undergoing oral chemotherapy treatment. CT imaging done this hospitalization demonstrated rapid progression of the metastasis of her pancreatic cancer with new lesions found on the liver, multiple lung nodules , and malignant lesions to the lumbar spine. Hospice has been consulted; appreciate their assistance. Patient and family goal is for the patient to be discharged to home with home hospice. We discussed pain management today and the patient and family members are agreeable to transitioning back to oral medication so that dose titration can be managed while she is inpatient. Have resumed the patient's home dose of OxyContin 20 mg twice daily and oxycodone 10 mg every 4 hours as needed. Continue Dilaudid 0.5 mg IV every 4 hours as needed for pain. Phenergan as needed for nausea. Attempted paracentesis today as the patient has a grossly distended abdomen. However, abdominal ultrasound did not demonstrate a fluid Collection amenable to drainage. Ultrasound did incidentally note bilateral moderate pleural effusions which may be increased from her previous chest x-ray which demonstrated only a mild left pleural effusion. Therefore, will ask radiology to evaluate for palliative thoracentesis tomorrow. Holding Eliquis pending possible procedure. The family is aware that this would be palliative and the fluid would likely recollect over time. (3) Shortness of breath Is this a current diagnosis for this admission?: Yes Plan: Multifactorial secondary to bilateral pneumonia, lung nodules (likely pancreatic metastasis), bilateral pleural effusions, and COPD. The patient has diminished lung sounds; no rhonchi or wheezing. Therefore will hold on steroid therapy. Supplemental oxygen as needed to maintain oxygen saturations. Cultures and antibiotics as above. Scheduled and as needed nebulizer treatments. We will ask radiology to evaluate for palliative thoracentesis. (4) COPD (chronic obstructive pulmonary disease) QualifierTitle: Emphysema type: unspecified Is this a current diagnosis for this admission?: Yes Plan: Without active exacerbation. We will continue the patient's home dose of Spiriva. She is receiving scheduled and as needed nebulizer treatments for bilateral pneumonia. (5) GERD (gastroesophageal reflux disease) Is this a current diagnosis for this admission?: Yes Plan: Continue PPI - Time Time Spent with patient: 35 or more minutes Medications reviewed and adjusted accordingly: Yes Anticipated discharge: Hospice - Home hospice Within: within 48 hours - Inpatient Certification Based on my medical assessment, after consideration of the patient's comorbidities, presenting symptoms, or acuity I expect that the services needed warrant INPATIENT care.: Yes I certify that my determination is in accordance with my understanding of Medicare's requirements for reasonable and necessary INPATIENT services [42 CFR 412.3e].: Yes Medical Necessity: Need For IV Fluids, Need for Pain Control <GHANSHYAM BLACKMAN C - Last Filed: 12/12/17 18:21> Subjective Reason For Visit: PNEUMONIA, STAGE IV PANCREATIC CANCER Physical Exam Vital Signs: Temp Pulse Resp BP Pulse Ox 98.4 F 97 20 114/73 96 12/03/17 19:35 12/06/17 22:00 12/06/17 20:00 12/03/17 19:35 12/05/17 08:14 Results Laboratory Results: 12/04/17 04:39 12/04/17 04:39 Impressions: Chest X-Ray 11/28/17 20:26 IMPRESSION: Bibasilar airspace -nodular opacities. Small left pleural effusion. Abdomen/Pelvis CT 11/28/17 20:31 IMPRESSION: Moderate bilateral pleural effusions. Increased basilar pulmonary nodularity. 12 cm hypodense mass in the right lobe of the liver. Small amount of ascites and moderate pelvic free fluid. Multifocal osseous metastatic disease. Head CT 11/28/17 21:37 IMPRESSION: No acute intracranial findings. EVIDENCE OF ACUTE STROKE: NO. Abdomen Ultrasound 11/30/17 00:00 IMPRESSION: No intra-abdominal ascitic fluid is identified. Bilateral pleural effusions are identified. Assessment & Plan - Plan Summary Plan Summary: Co-signing for Crystal Hemlock, FUEL SYSTEM MAINTENANCE WORKER
[2017-11-30] MEDS: POTASSI CL 20 MEQ/50 ML RIDER 20 MEQ/50 ML RTUPB IV SCH (21:24)
[2017-11-30] MEDS: GABAPENTIN 400 MG CAPSULE PO SCH (21:24)
[2017-11-30] MEDS: OXYCODONE HCL SR 10 MG TABLET PO SCH (21:26)
[2017-11-30] MEDS: TEMAZEPAM 15 MG CAPSULE PO SCH (21:26)
[2017-12-01] MEDS: POTASSI CL 20 MEQ/50 ML RIDER 20 MEQ/50 ML RTUPB IV SCH (00:09)
[2017-12-01] MEDS: IPRATROPIUM/ALBUTEROL 0.5-2.5 MG/3 ML AMPUL NEB SCH ×4 (02:42→19:46)
[2017-12-01] MEDS: OXYCODONE HCL IR 5 MG TABLET PO PRN ×3 (04:30→18:40)
[2017-12-01] MEDS: CEFEPIME 2 GM/D5W RTU 2 GM/50 ML RTUPB IV SCH ×2 (05:58→17:31)
[2017-12-01] MEDS: HYDROMORPHONE HCL INJ/PF 2 MG/ML AMPULE IV PRN (06:22)
[2017-12-01] MEDS: DOXYCYCLINE HYCLATE 100 MG in DEXTROSE 5%-WATER 250 ML IV SCH (06:23)
[2017-12-01] MEDS: LANSOPRAZOLE 15 MG TAB.RAP.DR PO SCH (06:24)
[2017-12-01] MEDS: LANSOPRAZOLE 30 MG TAB.RAP.DR PO SCH (06:24)
[2017-12-01 07:31] LABS: HEMOGLOBIN 10.7 g/dL (12.0-15.5); MEAN CORPUSCULAR HEMOGLOBIN 35.4 pg (27.0-33.4); MEAN CORPUSCULAR HGB CONC 32.3 g/dL (32.0-36.0); MEAN CORPUSCULAR VOLUME 109 fl (80-97); RED BLOOD COUNT 3.02 10^6/uL (3.72-5.28); RED CELL DISTRIBUTION WIDTH 23.3 % (11.5-14.0); WHITE BLOOD COUNT 19.7 10^3/uL (4.0-10.5)
[2017-12-01 07:35] LABS: INTERNATIONAL RATION (INR) 2.83; PROTHROMBIN TIME 31.1 SEC (11.4-15.4)
[2017-12-01 07:58] LABS: ANION GAP 8 (5-19); BLOOD UREA NITROGEN 15 mg/dL (7-20); CALCIUM 8.2 mg/dL (8.4-10.2); CARBON DIOXIDE 26 mmol/L (22-30); CHLORIDE 104 mmol/L (98-107); GLUCOSE 133 mg/dL (75-110); POTASSIUM 4.5 mmol/L (3.6-5.0); SODIUM 137.6 mmol/L (137-145)
[2017-12-01] MEDS: GABAPENTIN 300 MG CAPSULE PO SCH ×2 (07:58→14:47)
[2017-12-01 08:28] LABS: ABSOLUTE LYMPHOCYTES# (MANUAL) 1.2 10^3/uL (0.5-4.7); ABSOLUTE MONOCYTES # (MANUAL) 1.8 10^3/uL (0.1-1.4); ABSOLUTE NEUTROPHILS# (MANUAL) 15.8 10^3/uL (1.7-8.2); BAND NEUTROPHILS % (MANUAL) 1 % (3-5); BASOPHILS % (MANUAL) 1 % (0-2); EOSINOPHILS % (MANUAL) 4 % (0-6); LYMPHOCYTES % (MANUAL) 6 % (13-45); MONOCYTES % (MANUAL) 9 % (3-13); SEGMENTED NEUTROPHILS % (MAN) 79 % (42-78); TOTAL CELLS COUNTED 100
[2017-12-01 08:30] LABS: ANISOCYTOSIS 3+; PLATELET COMMENT DECREASED; POLYCHROMASIA 1+; TOXIC GRANULATION 1+; TOXIC VACUOLATION PRESENT
[2017-12-01 08:31] LABS: PLATELET COUNT 46 10^3/uL (150-450)
[2017-12-01] MEDS ORDERED: SPIRONOLACTONE 25 MG TABLET PO SCH (10:00)
[2017-12-01] MEDS: MEGESTROL ACETATE 20 MG TABLET PO SCH ×2 (12:02→17:32)
[2017-12-01] MEDS: OXYCODONE HCL SR 10 MG TABLET PO SCH ×2 (12:03→22:45)
[2017-12-01] MEDS: TIOTROPIUM BROMIDE DPI 5 CAP/KIT (18 MCG/CAP) IH SCH (12:04)
[2017-12-01] MEDS ORDERED: BISACODYL 10 MG SUPP.RECT PR ONE (12:30)
[2017-12-01] MEDS ORDERED: VANCOMYCIN HCL 0 MG in DEXTROSE 5%-WATER 250 ML IV NR (14:30)
[2017-12-01 15:21] LABS: APPEARANCE,URINE SLIGHTLY-CLOUDY; BILIRUBIN,URINE NEGATIVE (NEGATIVE); COLOR,URINE AMBER; GLUCOSE, URINE NEGATIVE (NEGATIVE); KETONES,URINE TRACE mg/dL (NEGATIVE); LEUKOCYTE ESTERASE,URINE NEGATIVE (NEGATIVE); NITRITE,URINE NEGATIVE (NEGATIVE); PROTEIN,URINE 30 mg/dL (NEGATIVE); URINE SPECIFIC GRAVITY 1.018
--- NOTE | 2017-12-01 16:34 | PDOC PROGRESS REPORT ---
Subjective Progress Note for:: 12/01/17 Subjective:: The patient is a 52-year-old female with past medical history significant for hyperlipidemia and stage IV pancreatic cancer with metastasis to the lungs, liver, and bone who was admitted on 11/29/17 for bibasilar pneumonia. The patient is seen on rounds with her sister present. She is found resting in bed on supplemental oxygen at 3 lpm. The patient is sleeping soundly; she does wake when I say her name and tells me that she is feeling "okay" then she quickly falls back asleep. She does arouse slightly to answer some additional questions, however, her answers were delayed and somewhat confused. She does tell me that her pain is well managed with her current medication regimen. I met with the patient's family later on this afternoon (patient's , sister, [id number]) to discuss plan of care. I expressed concern that the patient was exhibiting increased tachycardia, hypotension, increased WBCs, decreased mental status and that these were possible indications that she was beginning the active dying process. We discussed the antibiotic choices were not guided by blood or sputum cultures at this time, however, it was reasonable to consider expanding antibiotic coverage versus discontinuing antibiotics and pursuing comfort care measures. The patient's family agrees to trial escalated antibiotics today and to reevaluate vital signs and lab work tomorrow. They indicate that if her clinical picture was continued to worsen overnight, they would transition to comfort care. They also are requesting inpatient hospice services rather than to be discharged to home. Reason For Visit: PNEUMONIA, STAGE IV PANCREATIC CANCER Physical Exam Vital Signs: Temp Pulse Resp BP Pulse Ox 98.4 F 103 H 16 96/44 L 95 12/01/17 11:50 12/01/17 13:46 12/01/17 13:46 12/01/17 11:50 12/01/17 13:46 Intake & Output 11/30/17 12/01/17 12/02/17 06:59 06:59 06:59 Intake Total 3098 3595 Output Total 1120 Balance 1977 3595 Weight 59.4 kg 59.2 kg General appearance: PRESENT: mild distress, thin, well-developed Head exam: PRESENT: atraumatic, normocephalic Eye exam: PRESENT: conjunctiva pale, PERRLA - dialated pupils; sluggish. ABSENT : scleral icterus Ear exam: PRESENT: normal external ear exam Mouth exam: PRESENT: moist, tongue midline Neck exam: ABSENT: carotid bruit, JVD, lymphadenopathy, thyromegaly Respiratory exam: PRESENT: clear to auscultation tawana, symmetrical, tachypnea, unlabored, other - supplemental oxygen via NC. ABSENT: rales, rhonchi, wheezes Cardiovascular exam: PRESENT: RRR, +S1, +S2, tachycardia. ABSENT: diastolic murmur, rubs, systolic murmur Pulses: PRESENT: normal dorsalis pedis pul Vascular exam: PRESENT: normal capillary refill GI/Abdominal exam: PRESENT: diminished bowel sounds, distended, firm. ABSENT: guarding, mass, organolmegaly, rebound, tenderness Rectal exam: PRESENT: deferred Extremities exam: ABSENT: calf tenderness, clubbing, pedal edema Neurological exam: PRESENT: other - Somnulent; does briefly answer yes or no questions but difficult to assess whether pt truly understood what was being asked. ABSENT: motor sensory deficit Psychiatric exam: ABSENT: homicidal ideation, suicidal ideation Skin exam: PRESENT: dry, intact, pallor, warm. ABSENT: cyanosis, rash Results Laboratory Results: 12/01/17 07:06 12/01/17 07:06 12/01/17 12/01/17 12/01/17 07:06 07:06 12:45 WBC 19.7 H RBC 3.02 L Hgb 10.7 L Hct 33.0 L MCV 109 H MCH 35.4 H MCHC 32.3 RDW 23.3 H Plt Count 46 L Seg Neutrophils % Not Reportable Lymphocytes % Not Reportable Monocytes % Not Reportable Eosinophils % Not Reportable Basophils % Not Reportable Absolute Neutrophils Not Reportable Absolute Lymphocytes Not Reportable Absolute Monocytes Not Reportable Absolute Eosinophils Not Reportable Absolute Basophils Not Reportable Sodium 137.6 Potassium 4.5 Chloride 104 Carbon Dioxide 26 Anion Gap 8 BUN 15 Creatinine 0.49 L Est GFR ( Amer) > 60 Est GFR (Non-Af Amer) > 60 Glucose 133 H Calcium 8.2 L Urine Color SB Urine Appearance SLIGHTLY-CLOUDY Urine pH 6.0 Ur Specific S[place] 1.018 Urine Protein 30 H Urine Glucose (UA) NEGATIVE Urine Ketones TRACE H Urine Blood NEGATIVE Urine Nitrite NEGATIVE Ur Leukocyte Esterase NEGATIVE Urine WBC (Auto) 9 Urine RBC (Auto) 12 Impressions: Chest X-Ray 11/28/17 20:26 IMPRESSION: Bibasilar airspace -nodular opacities. Small left pleural effusion. Abdomen/Pelvis CT 11/28/17 20:31 IMPRESSION: Moderate bilateral pleural effusions. Increased basilar pulmonary nodularity. 12 cm hypodense mass in the right lobe of the liver. Small amount of ascites and moderate pelvic free fluid. Multifocal osseous metastatic disease. Head CT 11/28/17 21:37 IMPRESSION: No acute intracranial findings. EVIDENCE OF ACUTE STROKE: NO. Abdomen Ultrasound 11/30/17 00:00 IMPRESSION: No intra-abdominal ascitic fluid is identified. Bilateral pleural effusions are identified. Assessment & Plan - Diagnosis (1) Pneumonia Qualifiers: Laterality: bilateral Is this a current diagnosis for this admission?: Yes Plan: Worsening. Leukocytosis is trending up (19.7) and the patient remains tachycardic, hypotensive, tachypneic. She continues to require supplemental oxygen 3 L/min. Blood cultures have no growth to date. Repeat blood cultures are pending. The patient is admitted to the medical floor on continuous cardiac telemetry. She is provided supplemental oxygen as needed to maintain oxygen saturations greater than 88% Will expand antibiotics to cover healthcare associated pneumonia with risk for Pseudomonas; continue cefepime. Discontinue doxycycline. Initiate Levaquin and vancomycin. Scheduled and as needed nebulizer treatments are available. (2) Pancreatic cancer Qualifiers: Pancreatic malignancy location: unspecified Qualified Code(s): C25.9 - Malignant neoplasm of pancreas, unspecified Is this a current diagnosis for this admission?: Yes Plan: The patient is currently undergoing oral chemotherapy treatment. CT imaging done this hospitalization demonstrated rapid progression of the metastasis of her pancreatic cancer with new lesions found on the liver, multiple lung nodules , and malignant lesions to the lumbar spine. Hospice has been consulted; appreciate their assistance. Continue home dose of OxyContin 20 mg twice daily and oxycodone 10 mg every 4 hours as needed. Continue Dilaudid 0.5 mg IV every 4 hours as needed for pain. Phenergan as needed for nausea. Attempted paracentesis yesterday as the patient has a grossly distended abdomen. However, abdominal ultrasound did not demonstrate a fluid Collection amenable to drainage. Radiology reviewed imagining and did not note pleural effusion significant enough to drain. Will place candelaria catheter for comfort. Patient's family members request that the patient be kept inpatient for hospice services as they have an understandable fear that she would not tolerate ambulance transport to home at this time. They request continued antibiotics overnight and will likely decide on comfort care measures if the patient does not demonstrate notable improvements. (3) Shortness of breath Is this a current diagnosis for this admission?: Yes Plan: Multifactorial secondary to bilateral pneumonia, lung nodules (likely pancreatic metastasis), bilateral pleural effusions, and COPD. The patient has diminished lung sounds; no rhonchi or wheezing. Therefore will hold on steroid therapy. Supplemental oxygen as needed to maintain oxygen saturations. Cultures and antibiotics as above. Scheduled and as needed nebulizer treatments. (4) COPD (chronic obstructive pulmonary disease) Qualifiers: Emphysema type: unspecified Is this a current diagnosis for this admission?: Yes Plan: Without active exacerbation. We will continue the patient's home dose of Spiriva. She is receiving scheduled and as needed nebulizer treatments for bilateral pneumonia. (5) GERD (gastroesophageal reflux disease) Is this a current diagnosis for this admission?: Yes Plan: Continue PPI (6) Constipation Is this a current diagnosis for this admission?: Yes Plan: Report of the history of fecal impaction. Nursing placed Dulcolax suppository and did not note stool load. Will monitor and treat as needed for patient comfort. - Time Time Spent with patient: 35 or more minutes Medications reviewed and adjusted accordingly: Yes
[2017-12-01] MEDS: VANCOMYCIN HCL 1,250 MG in DEXTROSE 5%-WATER 250 ML IV SCH (18:31)
[2017-12-01] MEDS: GABAPENTIN 400 MG CAPSULE PO SCH (22:46)
[2017-12-01] MEDS: TEMAZEPAM 15 MG CAPSULE PO SCH (22:47)
[2017-12-01] MEDS: LEVOFLOXACIN 750 MG/D5W RTU 750 MG/150 ML RTUPB IV SCH (22:58)
[2017-12-01] MEDS: RINGERS SOLUTION,LACTATED 1,000 ML IV PRN (23:01)
[2017-12-02] MEDS: IPRATROPIUM/ALBUTEROL 0.5-2.5 MG/3 ML AMPUL NEB SCH ×3 (01:09→13:54)
[2017-12-02] MEDS: HYDROMORPHONE HCL INJ/PF 2 MG/ML AMPULE IV PRN ×3 (02:45→19:10)
[2017-12-02] MEDS: RINGERS SOLUTION,LACTATED 1,000 ML IV PRN (02:51)
[2017-12-02] MEDS: OXYCODONE HCL IR 5 MG TABLET PO PRN (05:45)
[2017-12-02] MEDS: CEFEPIME 2 GM/D5W RTU 2 GM/50 ML RTUPB IV SCH ×2 (05:46→17:15)
[2017-12-02] MEDS: LANSOPRAZOLE 15 MG TAB.RAP.DR PO SCH (05:58)
[2017-12-02] MEDS: LANSOPRAZOLE 30 MG TAB.RAP.DR PO SCH (05:58)
[2017-12-02] MEDS: VANCOMYCIN HCL 1,250 MG in DEXTROSE 5%-WATER 250 ML IV SCH ×2 (05:58→17:54)
[2017-12-02 06:11] LABS: HEMATOCRIT 34.1 % (36.0-47.0); MEAN CORPUSCULAR HEMOGLOBIN 35.6 pg (27.0-33.4); MEAN CORPUSCULAR HGB CONC 32.2 g/dL (32.0-36.0); RED BLOOD COUNT 3.08 10^6/uL (3.72-5.28); WHITE BLOOD COUNT 16.8 10^3/uL (4.0-10.5)
[2017-12-02 06:28] LABS: ANION GAP 7 (5-19); BLOOD UREA NITROGEN 19 mg/dL (7-20); CALCIUM 8.4 mg/dL (8.4-10.2); CARBON DIOXIDE 26 mmol/L (22-30); CHLORIDE 102 mmol/L (98-107); GLUCOSE 95 mg/dL (75-110); POTASSIUM 4.4 mmol/L (3.6-5.0); SODIUM 135.3 mmol/L (137-145)
[2017-12-02 07:13] LABS: MEAN CORPUSCULAR VOLUME 111 fl (80-97)
[2017-12-02 07:14] LABS: PLATELET COUNT 46 10^3/uL (150-450)
[2017-12-02 07:17] LABS: ABSOLUTE LYMPHOCYTES# (MANUAL) 1.7 10^3/uL (0.5-4.7); ABSOLUTE MONOCYTES # (MANUAL) 0.7 10^3/uL (0.1-1.4); ABSOLUTE NEUTROPHILS# (MANUAL) 13.6 10^3/uL (1.7-8.2); ANISOCYTOSIS 3+; BAND NEUTROPHILS % (MANUAL) 3 % (3-5); BASOPHILS % (MANUAL) 0 % (0-2); EOSINOPHILS % (MANUAL) 5 % (0-6); LYMPHOCYTES % (MANUAL) 10 % (13-45); MONOCYTES % (MANUAL) 4 % (3-13); NUCLEATED RED BLOOD CELLS 1 /100 WBC (0); SEGMENTED NEUTROPHILS % (MAN) 78 % (42-78); TOTAL CELLS COUNTED 100; TOXIC GRANULATION SLIGHT; TOXIC VACUOLATION PRESENT
[2017-12-02 07:18] LABS: HYPOCHROMASIA SLIGHT; PLATELET COMMENT DECREASED; POLYCHROMASIA SLIGHT
[2017-12-02] MEDS: GABAPENTIN 300 MG CAPSULE PO SCH ×2 (07:51→11:25)
[2017-12-02] MEDS ORDERED: PROMETHAZINE HCL INJ 25 MG/1 ML VIAL IV PRN ×2 (08:11→08:58)
[2017-12-02] MEDS ORDERED: ONDANSETRON 4 MG TAB.RAPDIS PO PRN (08:12)
[2017-12-02] MEDS ORDERED: ONDANSETRON HCL INJ/PF 4 MG/2 ML SDV IV PRN (08:30)
[2017-12-02] MEDS ORDERED: PROMETHAZINE HCL INJ 25 MG/1 ML VIAL ONE (08:36)
[2017-12-02] MEDS: TIOTROPIUM BROMIDE DPI 5 CAP/KIT (18 MCG/CAP) IH SCH (10:57)
[2017-12-02] MEDS: OXYCODONE HCL SR 10 MG TABLET PO SCH (10:57)
[2017-12-02] MEDS: MEGESTROL ACETATE 20 MG TABLET PO SCH (10:57)
[2017-12-02] MEDS ORDERED: HYDROMORPHONE HCL INJ/PF 2 MG/ML AMPULE IV PRN (15:33)
[2017-12-02] MEDS ORDERED: RINGERS SOLUTION,LACTATED 1,000 ML IV PRN (15:33)
[2017-12-02] MEDS ORDERED: LORAZEPAM INJ 2 MG/1 ML VIAL IV PRN (15:34)
[2017-12-02] MEDS ORDERED: ACETAMINOPHEN 650 MG SUPP.RECT PR PRN (15:35)
[2017-12-02] MEDS ORDERED: BISACODYL 10 MG SUPP.RECT PR PRN (15:35)
--- NOTE | 2017-12-02 15:53 | PDOC PROGRESS REPORT ---
Subjective Progress Note for:: 12/02/17 Subjective:: The patient is a 52-year-old female with past medical history significant for hyperlipidemia and stage IV pancreatic cancer with metastasis to the lungs, liver, and bone who was admitted on 11/29/17 for bibasilar pneumonia. The patient is seen on rounds with her family present. Her family asks to speak with me separately and so I met with them and then did meet with the patient individually. She is found resting in bed on supplemental oxygen at 3 lpm. The patient is sleeping, but wakes easily when I say her name. She tells me that her pain is relatively well-controlled today. She denies fever, chills , dyspnea, chest pain, palpitations, abdominal pain, nausea, vomiting, and constipation. I informed the patient that I was concerned that she was not improving and that we may be seeing indications that she is succumbing to her pancreatic cancer. The patient very clearly tells me that she wishes us to continue IV fluids and antibiotics to prolong her life. She states "I am not ready to go yet. " I met separately with the patient's family members (, 3 sisters, daughter , and 2 [id number]). We discussed the patient's deconditioning; no longer tolerating p.o. medications, decreased urinary output, increased tachypnea, tachycardia, persistent hypotension. The patient's family members appreciate this information and indicates that they are interested in pursuing comfort care measures as they do not wish to prolong the patient's life and cause additional suffering. We did discuss with the patient's wishes are contrary to this and they expressed relief at being able to honor her wishes. Reason For Visit: PNEUMONIA, STAGE IV PANCREATIC CANCER Physical Exam Vital Signs: Temp Pulse Resp BP Pulse Ox 98.3 F 109 H 18 110/75 93 12/02/17 12:13 12/02/17 14:00 12/02/17 13:55 12/02/17 12:13 12/02/17 13:55 Intake & Output 12/01/17 12/02/17 12/03/17 06:59 06:59 06:59 Intake Total 3595 120 Output Total 400 Balance 3595 -280 Weight 59.2 kg 59.2 kg General appearance: PRESENT: cooperative, mild distress, thin, well-developed, well-nourished Head exam: PRESENT: atraumatic, normocephalic Eye exam: PRESENT: conjunctiva pink, EOMI, PERRLA. ABSENT: scleral icterus Mouth exam: PRESENT: moist, tongue midline Neck exam: ABSENT: carotid bruit, JVD, lymphadenopathy, thyromegaly Respiratory exam: PRESENT: clear to auscultation tawana, decreased breath sounds, prolonged expiratory phas, symmetrical, tachypnea, other - Supplemental oxygen by nasal cannula. ABSENT: rales, rhonchi, wheezes Cardiovascular exam: PRESENT: RRR, +S1, +S2, tachycardia. ABSENT: diastolic murmur, rubs, systolic murmur Pulses: PRESENT: +1 pedal pulses bilateral Vascular exam: PRESENT: pallor GI/Abdominal exam: PRESENT: distended, firm, hypoactive bowel sounds. ABSENT: guarding, mass, organolmegaly, rebound, tenderness Rectal exam: PRESENT: deferred Extremities exam: PRESENT: full ROM. ABSENT: calf tenderness, clubbing, pedal edema Neurological exam: PRESENT: alert, awake, oriented to person, oriented to place , oriented to time, oriented to situation, CN II-XII grossly intact. ABSENT: motor sensory deficit Psychiatric exam: PRESENT: appropriate affect, normal mood. ABSENT: homicidal ideation, suicidal ideation Skin exam: PRESENT: dry, intact, pallor - Ortega, warm. ABSENT: cyanosis, rash Results Laboratory Results: 12/02/17 05:36 12/02/17 05:36 12/02/17 12/02/17 05:36 05:36 WBC 16.8 H RBC 3.08 L Hgb 11.0 L Hct 34.1 L MCV 111 H MCH 35.6 H MCHC 32.2 RDW 23.0 H Plt Count 46 L Seg Neutrophils % Not Reportable Lymphocytes % Not Reportable Monocytes % Not Reportable Eosinophils % Not Reportable Basophils % Not Reportable Absolute Neutrophils Not Reportable Absolute Lymphocytes Not Reportable Absolute Monocytes Not Reportable Absolute Eosinophils Not Reportable Absolute Basophils Not Reportable Sodium 135.3 L Potassium 4.4 Chloride 102 Carbon Dioxide 26 Anion Gap 7 BUN 19 Creatinine 0.52 Est GFR ( Amer) > 60 Est GFR (Non-Af Amer) > 60 Glucose 95 Calcium 8.4 Impressions: Chest X-Ray 11/28/17 20:26 IMPRESSION: Bibasilar airspace -nodular opacities. Small left pleural effusion. Abdomen/Pelvis CT 11/28/17 20:31 IMPRESSION: Moderate bilateral pleural effusions. Increased basilar pulmonary nodularity. 12 cm hypodense mass in the right lobe of the liver. Small amount of ascites and moderate pelvic free fluid. Multifocal osseous metastatic disease. Head CT 11/28/17 21:37 IMPRESSION: No acute intracranial findings. EVIDENCE OF ACUTE STROKE: NO. Abdomen Ultrasound 11/30/17 00:00 IMPRESSION: No intra-abdominal ascitic fluid is identified. Bilateral pleural effusions are identified. Assessment & Plan - Diagnosis (1) Pneumonia Qualifiers: Laterality: bilateral Is this a current diagnosis for this admission?: Yes Plan: Leukocytosis is slightly improved today to 16.8, however, and the patient has increased tachypnea, tachycardia, remains oxygen dependent and mildly hypotensive. Blood cultures have no growth to date. Repeat blood cultures have no growth. Sputum culture has not been obtained; the patient does have a very wet sounding cough, however, is unable to produce sputum. The patient is admitted to the medical floor on continuous cardiac telemetry. She is provided supplemental oxygen as needed to maintain oxygen saturations greater than 88% Will expand antibiotics to cover healthcare associated pneumonia with risk for Pseudomonas. Continue cefepime, Levaquin and vancomycin. Scheduled and as needed nebulizer treatments are available. (2) Pancreatic cancer Qualifiers: Pancreatic malignancy location: unspecified Qualified Code(s): C25.9 - Malignant neoplasm of pancreas, unspecified Is this a current diagnosis for this admission?: Yes Plan: Poor prognosis; Anticipating the patient will pass away shortly. CT imaging done this hospitalization demonstrated rapid progression of the metastasis of her pancreatic cancer with new lesions found on the liver, multiple lung nodules, and malignant lesions to the lumbar spine. Hospice has been consulted; appreciate their assistance. As the patient is unable to tolerate p.o. medications today, I have discontinued her OxyContin 20 mg and oxycodone 10 mg. We will resume Dilaudid 0.5 mg IV every 2 hours as needed for pain or respiratory rate greater than 24. Zofran odt or IV Phenergan as needed for nausea. Continue candelaria catheter for comfort. Ativan IV as needed for anxiety. Tylenol suppository as needed for fever. Dulcolax suppository as needed for constipation. We will consider scopolamine patch in the near future. The patient is demonstrating increased alertness today and requests continued IV fluids and antibiotic therapy. Plan of care was discussed in detail with the patient and multiple family members as described above. (3) Shortness of breath Is this a current diagnosis for this admission?: Yes Plan: Multifactorial secondary to bilateral pneumonia, lung nodules (likely pancreatic metastasis), bilateral pleural effusions, and COPD. The patient has diminished lung sounds; no rhonchi or wheezing. Therefore will hold on steroid therapy. Plan as above. (4) COPD (chronic obstructive pulmonary disease) Qualifiers: Emphysema type: unspecified Is this a current diagnosis for this admission?: Yes Plan: Without active exacerbation. We will continue the patient's home dose of Spiriva. She is receiving scheduled and as needed nebulizer treatments for bilateral pneumonia. (5) GERD (gastroesophageal reflux disease) Is this a current diagnosis for this admission?: Yes Plan: Continue PPI (6) Constipation Is this a current diagnosis for this admission?: Yes Plan: Dulcolax suppository daily as needed. (7) Decreased urine output Is this a current diagnosis for this admission?: Yes Plan: Candelaria catheter placed for patient comfort. The patient received 3.5 L combined IV fluids in the last 24 hours; has only had 400 mL's of urinary output. - Time Time Spent with patient: 35 or more minutes Medications reviewed and adjusted accordingly: Yes
[2017-12-02] MEDS: LEVOFLOXACIN 750 MG/D5W RTU 750 MG/150 ML RTUPB IV SCH (22:32)
[2017-12-02] MEDS: GABAPENTIN 400 MG CAPSULE PO SCH (22:34)
[2017-12-02] MEDS: TEMAZEPAM 15 MG CAPSULE PO SCH (22:34)
[2017-12-03] MEDS: IPRATROPIUM/ALBUTEROL 0.5-2.5 MG/3 ML AMPUL NEB SCH ×2 (00:54→07:46)
[2017-12-03] MEDS: HYDROMORPHONE HCL INJ/PF 2 MG/ML AMPULE IV PRN ×8 (04:10→23:22)
[2017-12-03 06:48] LABS: ANION GAP 5 (5-19); BLOOD UREA NITROGEN 19 mg/dL (7-20); CALCIUM 8.5 mg/dL (8.4-10.2); CARBON DIOXIDE 26 mmol/L (22-30); CHLORIDE 101 mmol/L (98-107); GLUCOSE 98 mg/dL (75-110); POTASSIUM 4.7 mmol/L (3.6-5.0); SODIUM 131.9 mmol/L (137-145)
[2017-12-03] MEDS: CEFEPIME 2 GM/D5W RTU 2 GM/50 ML RTUPB IV SCH ×2 (06:50→18:56)
[2017-12-03 06:56] LABS: HEMATOCRIT 33.5 % (36.0-47.0); HEMOGLOBIN 10.9 g/dL (12.0-15.5); MEAN CORPUSCULAR HEMOGLOBIN 35.5 pg (27.0-33.4); MEAN CORPUSCULAR HGB CONC 32.6 g/dL (32.0-36.0); MEAN CORPUSCULAR VOLUME 109 fl (80-97); RED BLOOD COUNT 3.08 10^6/uL (3.72-5.28); RED CELL DISTRIBUTION WIDTH 21.9 % (11.5-14.0); WHITE BLOOD COUNT 17.2 10^3/uL (4.0-10.5)
[2017-12-03 06:57] LABS: PLATELET COUNT 46 10^3/uL (150-450)
[2017-12-03] MEDS: GABAPENTIN 300 MG CAPSULE PO SCH ×2 (07:46→12:26)
[2017-12-03] MEDS: VANCOMYCIN HCL 1,250 MG in DEXTROSE 5%-WATER 250 ML IV SCH (09:43)
[2017-12-03] MEDS: TIOTROPIUM BROMIDE DPI 5 CAP/KIT (18 MCG/CAP) IH SCH (09:47)
[2017-12-03] MEDS: FAMOTIDINE INJ/PF 20 MG/2 ML SDV IV SCH (09:47)
[2017-12-03] MEDS ORDERED: RINGERS SOLUTION,LACTATED 1,000 ML IV PRN (10:20)
[2017-12-03] MEDS ORDERED: FUROSEMIDE INJ/PF 20 MG/2 ML SDV IV ONE (10:21)
[2017-12-03] MEDS: PROMETHAZINE HCL INJ 25 MG/1 ML VIAL IV PRN ×2 (12:29→20:14)
[2017-12-03] MEDS: ALBUTEROL SULFATE 0.083% NEB 2.5 MG/3 ML AMPUL NEB PRN (13:25)
[2017-12-03] MEDS ORDERED: SCOPOLAMINE HYDROBROMIDE 1.5 MG PATCH.TD72 TD ONE (14:00)
--- NOTE | 2017-12-03 14:49 | PDOC PROGRESS REPORT ---
Subjective Progress Note for:: 12/03/17 Subjective:: The patient is a 52-year-old female with past medical history significant for hyperlipidemia and stage IV pancreatic cancer with metastasis to the lungs, liver, and bone who was admitted on 11/29/17 for bibasilar pneumonia. The patient is seen on rounds with her family present. Her family asks to speak with me separately and so I met with them and then did meet with the patient individually. She is found resting in bed on supplemental oxygen at 3 lpm. The patient is sleeping, but wakes easily when I say her name. She tells me that her pain is relatively well-controlled today. She denies fever, chills , dyspnea, chest pain, palpitations, abdominal pain, nausea, vomiting, and constipation. I informed the patient that I was concerned that she was not improving and that we may be seeing indications that she is succumbing to her pancreatic cancer. The patient very clearly tells me that she wishes us to continue IV fluids and antibiotics to prolong her life. She states "I am not ready to go yet. " I met separately with the patient's family members (, 3 sisters, daughter , and 2 [id number]). We discussed the patient's deconditioning; no longer tolerating p.o. medications, decreased urinary output, increased tachypnea, tachycardia, persistent hypotension. The patient's family members appreciate this information and indicates that they are interested in pursuing comfort care measures as they do not wish to prolong the patient's life and cause additional suffering. We did discuss with the patient's wishes are contrary to this and they expressed relief at being able to honor her wishes. Reason For Visit: PNEUMONIA, STAGE IV PANCREATIC CANCER Physical Exam Vital Signs: Temp Pulse Resp BP Pulse Ox 98.4 F 119 H 18 132/78 H 92 12/03/17 12:00 12/03/17 13:25 12/03/17 13:25 12/03/17 12:00 12/03/17 13:25 Intake & Output 12/02/17 12/03/17 12/04/17 06:59 06:59 06:59 Intake Total 120 2722 Output Total 400 450 Balance -280 2272 Weight 59.2 kg 70.2 kg General appearance: PRESENT: mild distress, thin, well-developed Head exam: PRESENT: atraumatic, normocephalic Eye exam: PRESENT: conjunctiva pale, EOMI, PERRLA. ABSENT: scleral icterus Mouth exam: PRESENT: dry mucosa, tongue midline Teeth exam: PRESENT: poor dentation Neck exam: ABSENT: carotid bruit, JVD, lymphadenopathy, thyromegaly Respiratory exam: PRESENT: accessory muscle use, crackles, decreased breath sounds - bibasilar, rhonchi, tachypnea, wheezes, other - abdominal breathing; supplemental oxygen via NC. ABSENT: rales Cardiovascular exam: PRESENT: RRR, tachycardia. ABSENT: diastolic murmur, rubs , systolic murmur Pulses: PRESENT: +1 pedal pulses bilateral Vascular exam: PRESENT: pallor GI/Abdominal exam: PRESENT: distended, firm, hypoactive bowel sounds. ABSENT: guarding, mass, organolmegaly, rebound, tenderness Rectal exam: PRESENT: deferred Extremities exam: ABSENT: calf tenderness, clubbing, pedal edema Neurological exam: PRESENT: other - Arousable; answers yes or no questions. Confused per family members.. ABSENT: motor sensory deficit Psychiatric exam: ABSENT: homicidal ideation, suicidal ideation Skin exam: PRESENT: dry, intact, pallor, warm. ABSENT: cyanosis, normal color - Ortega, rash Results Laboratory Results: 12/03/17 05:49 12/03/17 05:49 12/03/17 12/03/17 05:49 05:49 WBC 17.2 H RBC 3.08 L Hgb 10.9 L Hct 33.5 L MCV 109 H MCH 35.5 H MCHC 32.6 RDW 21.9 H Plt Count 46 L Sodium 131.9 L Potassium 4.7 Chloride 101 Carbon Dioxide 26 Anion Gap 5 BUN 19 Creatinine 0.55 Est GFR ( Amer) > 60 Est GFR (Non-Af Amer) > 60 Glucose 98 Calcium 8.5 Impressions: Chest X-Ray 11/28/17 20:26 IMPRESSION: Bibasilar airspace -nodular opacities. Small left pleural effusion. Abdomen/Pelvis CT 11/28/17 20:31 IMPRESSION: Moderate bilateral pleural effusions. Increased basilar pulmonary nodularity. 12 cm hypodense mass in the right lobe of the liver. Small amount of ascites and moderate pelvic free fluid. Multifocal osseous metastatic disease. Head CT 11/28/17 21:37 IMPRESSION: No acute intracranial findings. EVIDENCE OF ACUTE STROKE: NO. Abdomen Ultrasound 11/30/17 00:00 IMPRESSION: No intra-abdominal ascitic fluid is identified. Bilateral pleural effusions are identified. Assessment & Plan - Diagnosis (1) Pneumonia Qualifiers: Laterality: bilateral Is this a current diagnosis for this admission?: Yes Plan: Unchanged; leukocytosis 17.2, gradually increasing tachypnea and tachycardia, remains oxygen dependent. Adventitious breath sounds today; diminished bibasilar with rhonchi, wheezing, and crackles. Blood cultures have no growth to date. Repeat blood cultures have no growth. Sputum culture has not been obtained; the patient does have a very wet sounding cough, however, is unable to produce sputum. The patient is admitted to the medical floor on continuous cardiac telemetry. She is provided supplemental oxygen as needed to maintain oxygen saturations greater than 88% Continue cefepime, Levaquin and vancomycin. As needed nebulizer treatments are available. (2) Pancreatic cancer Qualifiers: Pancreatic malignancy location: unspecified Qualified Code(s): C25.9 - Malignant neoplasm of pancreas, unspecified Is this a current diagnosis for this admission?: Yes Plan: Poor prognosis; Anticipating the patient will pass away shortly. CT imaging done this hospitalization demonstrated rapid progression of the metastasis of her pancreatic cancer with new lesions found on the liver, multiple lung nodules, and malignant lesions to the lumbar spine. Hospice has been consulted; appreciate their assistance. The patient is no longer able to tolerate p.o. medications. Continue Dilaudid 0.5 mg IV hourly as needed for pain or respiratory rate greater than 24. Zofran odt or IV Phenergan as needed for nausea. Continue candelaria catheter for comfort. Ativan IV as needed for anxiety. Tylenol suppository as needed for fever. Dulcolax suppository as needed for constipation. Scopolamine patch for copious oral secretions. IV Lasix 10 mg 1 The patient is demonstrating decreased alertness with confusion today. The patient very clearly requested that IV antibiotics and fluids be continued, but as she has developed bibasilar crackles with minimal urinary output I am concerned that she is developing pulmonary edema. Will continue IV antibiotics per patient's request but decrease maintenance IV fluids to KVO. (3) Shortness of breath Is this a current diagnosis for this admission?: Yes Plan: Multifactorial secondary to bilateral pneumonia, lung nodules (likely pancreatic metastasis), bilateral pleural effusions, and COPD. Plan as above. (4) COPD (chronic obstructive pulmonary disease) Qualifiers: Emphysema type: unspecified Is this a current diagnosis for this admission?: Yes Plan: Without active exacerbation. We will continue the patient's home dose of Spiriva; as tolerated. Pt has not been alert enough to take medication today. She is receiving as needed nebulizer treatments for bilateral pneumonia. (5) GERD (gastroesophageal reflux disease) Is this a current diagnosis for this admission?: Yes Plan: Continue PPI (6) Constipation Is this a current diagnosis for this admission?: Yes Plan: Dulcolax suppository daily as needed. (7) Decreased urine output Is this a current diagnosis for this admission?: Yes Plan: Secondary to end-of-life transition. Candelaria catheter placed for patient comfort. The patient received 3 L combined IV fluids in the last 24 hours; has only had 450 mL's of urinary output. Creatinine and BUN are stable, however, sodium is trending down and the patient has developed crackles. Will decrease IV fluids. Lasix 10 mg x1. - Time Time Spent with patient: 35 or more minutes Medications reviewed and adjusted accordingly: Yes
[2017-12-03] MEDS: VANCOMYCIN HCL 1,000 MG in DEXTROSE 5%-WATER 250 ML IV SCH (17:44)
[2017-12-03] MEDS: GABAPENTIN 400 MG CAPSULE PO SCH (21:19)
[2017-12-03] MEDS: LEVOFLOXACIN 750 MG/D5W RTU 750 MG/150 ML RTUPB IV SCH (21:20)
[2017-12-03] MEDS: TEMAZEPAM 15 MG CAPSULE PO SCH (21:20)
[2017-12-03 23:19] VITALS: BP 114/73
[2017-12-04] MEDS: LORAZEPAM INJ 2 MG/1 ML VIAL IV PRN (01:34)
[2017-12-04] MEDS: HYDROMORPHONE HCL INJ/PF 2 MG/ML AMPULE IV PRN ×11 (01:35→23:12)
[2017-12-04] MEDS: VANCOMYCIN HCL 1,000 MG in DEXTROSE 5%-WATER 250 ML IV SCH (04:56)
[2017-12-04] MEDS: PROMETHAZINE HCL INJ 25 MG/1 ML VIAL IV PRN (05:09)
[2017-12-04 05:30] LABS: HEMATOCRIT 34.7 % (36.0-47.0); HEMOGLOBIN 11.2 g/dL (12.0-15.5); MEAN CORPUSCULAR HEMOGLOBIN 35.8 pg (27.0-33.4); MEAN CORPUSCULAR HGB CONC 32.4 g/dL (32.0-36.0); MEAN CORPUSCULAR VOLUME 111 fl (80-97); RED BLOOD COUNT 3.14 10^6/uL (3.72-5.28); WHITE BLOOD COUNT 17.2 10^3/uL (4.0-10.5)
[2017-12-04 05:46] LABS: ANION GAP 7 (5-19); BLOOD UREA NITROGEN 25 mg/dL (7-20); CALCIUM 8.3 mg/dL (8.4-10.2); CARBON DIOXIDE 24 mmol/L (22-30); CHLORIDE 100 mmol/L (98-107); GLUCOSE 97 mg/dL (75-110); POTASSIUM 4.8 mmol/L (3.6-5.0); SODIUM 131.3 mmol/L (137-145)
[2017-12-04 05:53] LABS: PLATELET COUNT 47 10^3/uL (150-450)
[2017-12-04] MEDS: CEFEPIME 2 GM/D5W RTU 2 GM/50 ML RTUPB IV SCH (07:51)
[2017-12-04] MEDS: GABAPENTIN 300 MG CAPSULE PO SCH (07:52)
[2017-12-04] MEDS: ALBUTEROL SULFATE 0.083% NEB 2.5 MG/3 ML AMPUL NEB PRN (08:14)
[2017-12-04] MEDS: FAMOTIDINE INJ/PF 20 MG/2 ML SDV IV SCH (10:01)
[2017-12-04] MEDS: TIOTROPIUM BROMIDE DPI 5 CAP/KIT (18 MCG/CAP) IH SCH (10:01)
[2017-12-04] MEDS ORDERED: FUROSEMIDE INJ/PF 20 MG/2 ML SDV IV ONE (11:30)
--- NOTE | 2017-12-04 15:43 | PDOC PROGRESS REPORT ---
Subjective Progress Note for:: 12/04/17 Subjective:: The patient is a 52-year-old female with past medical history significant for hyperlipidemia and stage IV pancreatic cancer with metastasis to the lungs, liver, and bone who was admitted on 11/29/17 for bibasilar pneumonia. The patient is seen on rounds with her family present. She is found resting in bed with head of bed elevated to 45 and on supplemental oxygen at 3 L/min. She is noted to be tachypneic with accessory muscle use and retractions. She wakes briefly when I say her name and answers yes or no questions, however, she is clearly confused and not answering the questions appropriately. Her family members report that she has been awake for only a brief period of time in the last 24 hours. They report that she has become progressively more confused and when talking does not make sense. They state that she does not seem to recognize her family members anymore. I met separately with the patient's family members (, 3 sisters, and [id number]). We discussed the patient's deconditioning; no longer tolerating p.o., decreased urinary output, increased respiratory distress, and morning laboratory work. The patient's family members appreciate this information and discuss amongst themselves their decision to request comfort care measures. They came to the unanimous decision to discontinue IV antibiotics and to pursue comfort care measures only. Reason For Visit: PNEUMONIA, STAGE IV PANCREATIC CANCER Physical Exam Vital Signs: Temp Pulse Resp BP Pulse Ox 98.4 F 109 H 18 114/73 90 L 12/03/17 19:35 12/04/17 08:14 12/04/17 08:14 12/03/17 19:35 12/04/17 08:14 Intake & Output 12/03/17 12/04/17 12/05/17 06:59 06:59 06:59 Intake Total 2722 2303 Output Total 450 975 Balance 2272 1328 Weight 70.2 kg 73.3 kg General appearance: PRESENT: mild distress, well-developed, other - Cachectic Head exam: PRESENT: atraumatic, normocephalic Eye exam: PRESENT: conjunctiva pale, EOMI, PERRLA. ABSENT: scleral icterus Ear exam: PRESENT: normal external ear exam Mouth exam: PRESENT: dry mucosa, tongue midline Neck exam: ABSENT: carotid bruit, JVD, lymphadenopathy, thyromegaly Respiratory exam: PRESENT: accessory muscle use, crackles - Bibasilar, decreased breath sounds - Bibasilar, rhonchi, tachypnea, wheezes - Inspiratory and expiratory wheezing, other - Supplemental oxygen via nasal cannula. ABSENT : rales Cardiovascular exam: PRESENT: RRR, tachycardia, other - +1 nonpitting edema to bilateral upper extremities, +2 nonpitting edema bilateral lower extremities. ABSENT: diastolic murmur, rubs, systolic murmur Pulses: PRESENT: normal dorsalis pedis pul Vascular exam: PRESENT: normal capillary refill GI/Abdominal exam: PRESENT: distended, firm, hypoactive bowel sounds. ABSENT: guarding, mass, organolmegaly, rebound, tenderness Rectal exam: PRESENT: deferred Gentrourinary exam: PRESENT: indwelling catheter - Dark lucio urine Extremities exam: ABSENT: calf tenderness, clubbing, pedal edema Neurological exam: PRESENT: other - Somnolent; answers questions inappropriately , does not follow directions. ABSENT: motor sensory deficit Psychiatric exam: ABSENT: homicidal ideation, suicidal ideation Skin exam: PRESENT: dry, intact, mottled, pallor, warm. ABSENT: cyanosis, rash Results Laboratory Results: 12/04/17 04:39 12/04/17 04:39 12/04/17 12/04/17 04:39 04:39 WBC 17.2 H RBC 3.14 L Hgb 11.2 L Hct 34.7 L MCV 111 H MCH 35.8 H MCHC 32.4 RDW 22.0 H Plt Count 47 L Sodium 131.3 L Potassium 4.8 Chloride 100 Carbon Dioxide 24 Anion Gap 7 BUN 25 H Creatinine 0.61 Est GFR ( Amer) > 60 Est GFR (Non-Af Amer) > 60 Glucose 97 Calcium 8.3 L Impressions: Chest X-Ray 11/28/17 20:26 IMPRESSION: Bibasilar airspace -nodular opacities. Small left pleural effusion. Abdomen/Pelvis CT 11/28/17 20:31 IMPRESSION: Moderate bilateral pleural effusions. Increased basilar pulmonary nodularity. 12 cm hypodense mass in the right lobe of the liver. Small amount of ascites and moderate pelvic free fluid. Multifocal osseous metastatic disease. Head CT 11/28/17 21:37 IMPRESSION: No acute intracranial findings. EVIDENCE OF ACUTE STROKE: NO. Abdomen Ultrasound 11/30/17 00:00 IMPRESSION: No intra-abdominal ascitic fluid is identified. Bilateral pleural effusions are identified. Assessment & Plan - Diagnosis (1) Pneumonia Qualifiers: Laterality: bilateral Is this a current diagnosis for this admission?: Yes Plan: Unchanged; leukocytosis 17.2, gradually increasing tachypnea and tachycardia, remains oxygen dependent. Adventitious breath sounds today; diminished bibasilar with rhonchi, wheezing, and crackles. Blood cultures have no growth to date. Repeat blood cultures have no growth. Sputum culture has not been obtained; the patient does have a very wet sounding cough, however, is unable to produce sputum. The patient's family members have requested that IV antibiotics be discontinued and the patient be placed on comfort care measures. The patient is admitted to the medical floor. She is provided supplemental oxygen for comfort. Discontinue IV antibiotics. As needed nebulizer treatments are available for shortness of breath/wheezing. (2) Pancreatic cancer Qualifiers: Pancreatic malignancy location: unspecified Qualified Code(s): C25.9 - Malignant neoplasm of pancreas, unspecified Is this a current diagnosis for this admission?: Yes Plan: Grave prognosis; Anticipating the patient will pass away shortly. The patient is now somnolent, disoriented, decreased urinary output, and has had scant oral intake x72 hours. The patient's family members have requested comfort care measures. CT imaging done this hospitalization demonstrated rapid progression of the metastasis of her pancreatic cancer with new lesions found on the liver, multiple lung nodules, and malignant lesions to the lumbar spine. Hospice has been consulted; appreciate their assistance. IV maintenance fluids and antibiotics are discontinued. Instituting comfort care measures. Continue Dilaudid 0.5 mg IV hourly as needed for pain or respiratory rate greater than 24. Zofran odt or IV Phenergan as needed for nausea. Continue candelaria catheter for comfort. Ativan IV as needed for anxiety. Tylenol suppository as needed for fever. Dulcolax suppository as needed for constipation. Scopolamine patch for copious oral secretions. We will repeat Lasix again today; if there is no noted improvement in the patient's respiratory discomfort will not attempt further diuresis. (3) Shortness of breath Is this a current diagnosis for this admission?: Yes Plan: Multifactorial secondary to bilateral pneumonia, lung nodules (likely pancreatic metastasis), bilateral pleural effusions, and COPD. Plan as above. (4) COPD (chronic obstructive pulmonary disease) Qualifiers: Emphysema type: unspecified Is this a current diagnosis for this admission?: Yes Plan: She is receiving as needed nebulizer treatments for bilateral pneumonia. Remaining plan as above. (5) GERD (gastroesophageal reflux disease) Is this a current diagnosis for this admission?: Yes Plan: Continue PPI (6) Constipation Is this a current diagnosis for this admission?: Yes Plan: Dulcolax suppository daily as needed. (7) Decreased urine output Is this a current diagnosis for this admission?: Yes Plan: Secondary to end-of-life transition. Candelaria catheter placed for patient comfort. The patient received 2.3 L combined IV fluids in the last 24 hours; has only had 975mL's of urinary output. However with bilateral crackles and anasarca. Creatinine and BUN are trending up. Sodium trending further down. All IV fluids are discontinued. Lasix 10 mg x1. - Time Time Spent with patient: 35 or more minutes Medications reviewed and adjusted accordingly: Yes
[2017-12-04] MEDS ORDERED: ATROPINE SULFATE 1% OPH SOLN 5 ML BOTTLE SL PRN (21:59)
[2017-12-04] MEDS ORDERED: ATROPINE SULFATE 1% OPH SOLN 5 ML BOTTLE ONE (23:17)
[2017-12-05] MEDS: PROMETHAZINE HCL INJ 25 MG/1 ML VIAL IV PRN (00:06)
[2017-12-05] MEDS: HYDROMORPHONE HCL INJ/PF 2 MG/ML AMPULE IV PRN ×15 (01:10→22:12)
[2017-12-05] MEDS: ALBUTEROL SULFATE 0.083% NEB 2.5 MG/3 ML AMPUL NEB PRN (08:14)
[2017-12-05] MEDS: DEXAMETHASONE SOD PHOS INJ 10 MG/1 ML VIAL IV SCH ×2 (09:52→17:57)
[2017-12-05] MEDS: FAMOTIDINE INJ/PF 20 MG/2 ML SDV IV SCH (09:52)
[2017-12-05] MEDS ORDERED: ATROPINE SULFATE 1% OPH SOLN 5 ML BOTTLE SL PRN (12:28)
--- NOTE | 2017-12-05 12:34 | PDOC PROGRESS REPORT ---
Subjective Progress Note for:: 12/05/17 Subjective:: The patient is a 52-year-old female with past medical history significant for hyperlipidemia and stage IV pancreatic cancer with metastasis to the lungs, liver, and bone who was admitted on 11/29/17 for bibasilar pneumonia. The patient is seen on rounds with her family present. She is found resting in bed with head of bed elevated to 45 and on supplemental oxygen at 3 L/min. She is noted to have audible wet breath sound and is tachypneic with accessory muscle use and retractions. She opens her eyes briefly when I say her name, but does not respond to questions or attempt to speak. Her family members report that she seems to have more labored breathing today. They have no questions at this time. I checked on her again this afternoon and note that she now has agonal breathing ; she demonstrates shoulder shrug and head bobbing at a rate of 12, but only every third attempt results in successful inspiration. Reason For Visit: PNEUMONIA, STAGE IV PANCREATIC CANCER Physical Exam Vital Signs: Temp Pulse Resp BP Pulse Ox 98.4 F 111 H 9 L 114/73 96 12/03/17 19:35 12/05/17 08:14 12/05/17 08:14 12/03/17 19:35 12/05/17 08:14 Intake & Output 12/04/17 12/05/17 12/06/17 06:59 06:59 06:59 Intake Total 2303 1533 Output Total 975 Balance 1328 1533 Weight 73.3 kg General appearance: PRESENT: mild distress, thin, well-developed, other - anasarca Head exam: PRESENT: atraumatic, normocephalic Eye exam: PRESENT: conjunctiva pale. ABSENT: scleral icterus Ear exam: PRESENT: normal external ear exam Mouth exam: PRESENT: dry mucosa, tongue midline Neck exam: ABSENT: carotid bruit, JVD, lymphadenopathy, thyromegaly Respiratory exam: PRESENT: accessory muscle use, decreased breath sounds, prolonged expiratory phas, retraction, rhonchi, wheezes, other - preiods of agonal breathing noted. ABSENT: rales Cardiovascular exam: PRESENT: other - Unable to assess secondary to adventatious lung sounds. ABSENT: diastolic murmur, rubs, systolic murmur Pulses: PRESENT: other - weak pedal pulse Vascular exam: PRESENT: pallor, other - delayed cap refill GI/Abdominal exam: PRESENT: ascites, diminished bowel sounds, distended. ABSENT : guarding, mass, organolmegaly, rebound, tenderness Rectal exam: PRESENT: deferred Extremities exam: PRESENT: other - anasarca. ABSENT: calf tenderness, clubbing , pedal edema Neurological exam: PRESENT: other - Obtunded. ABSENT: motor sensory deficit Psychiatric exam: ABSENT: homicidal ideation, suicidal ideation Skin exam: PRESENT: dry, intact, pallor. ABSENT: cyanosis, rash Results Laboratory Results: 12/04/17 04:39 12/04/17 04:39 Impressions: Chest X-Ray 11/28/17 20:26 IMPRESSION: Bibasilar airspace -nodular opacities. Small left pleural effusion. Abdomen/Pelvis CT 11/28/17 20:31 IMPRESSION: Moderate bilateral pleural effusions. Increased basilar pulmonary nodularity. 12 cm hypodense mass in the right lobe of the liver. Small amount of ascites and moderate pelvic free fluid. Multifocal osseous metastatic disease. Head CT 11/28/17 21:37 IMPRESSION: No acute intracranial findings. EVIDENCE OF ACUTE STROKE: NO. Abdomen Ultrasound 11/30/17 00:00 IMPRESSION: No intra-abdominal ascitic fluid is identified. Bilateral pleural effusions are identified. Assessment & Plan - Diagnosis (1) Pneumonia Qualifiers: Laterality: bilateral Is this a current diagnosis for this admission?: Yes Plan: Now on comfort measures. The patient is admitted to the medical floor. She is provided supplemental oxygen for comfort. IV antibiotics discontinued yesterday. As needed nebulizer treatments are available for comfort/shortness of breath/ wheezing. (2) Pancreatic cancer Qualifiers: Pancreatic malignancy location: unspecified Qualified Code(s): C25.9 - Malignant neoplasm of pancreas, unspecified Is this a current diagnosis for this admission?: Yes Plan: Grave prognosis; Anticipating the patient will pass away shortly. The patient is now obtunded with decreased urinary output and periods of agonal breathing. Now on comfort care. CT imaging done this hospitalization demonstrated rapid progression of the metastasis of her pancreatic cancer with new lesions found on the liver, multiple lung nodules, and malignant lesions to the lumbar spine. Hospice has been consulted; appreciate their assistance. IV maintenance fluids and antibiotics are discontinued. Instituting comfort care measures. Continue Dilaudid 0.5 mg IV hourly as needed for pain or respiratory rate greater than 24. Zofran odt or IV Phenergan as needed for nausea. Continue candelaria catheter for comfort. Ativan IV as needed for anxiety. Tylenol suppository as needed for fever. Dulcolax suppository as needed for constipation. Scopolamine patch and as needed atropine drops for copious oral secretions. IV dexamethasone for wheezing and relief of pain. (3) Shortness of breath Is this a current diagnosis for this admission?: Yes Plan: Multifactorial secondary to bilateral pneumonia, lung nodules (likely pancreatic metastasis), bilateral pleural effusions, and COPD. Plan as above. (4) COPD (chronic obstructive pulmonary disease) Qualifiers: Emphysema type: unspecified Is this a current diagnosis for this admission?: Yes Plan: Plan as above. (5) GERD (gastroesophageal reflux disease) Is this a current diagnosis for this admission?: Yes Plan: Continue PPI (6) Constipation Is this a current diagnosis for this admission?: Yes Plan: Dulcolax suppository daily as needed. (7) Decreased urine output Is this a current diagnosis for this admission?: Yes Plan: Secondary to end-of-life transition. Candelaria catheter placed for patient comfort. The patient is +7 L and 13 kg. Now with bilateral crackles and anasarca. All IV fluids are discontinued. Remaining plan as above. - Time Time Spent with patient: 25-34 minutes Medications reviewed and adjusted accordingly: Yes
--- NOTE | 2017-12-05 17:25 | Progress Note ---
Provider Note Provider Note: Asked to verify comfort only status. Patient was seen, chart reviewed, case discussed with nurse practitioner. She has a dismal prognosis. I agree with comfort measures.
[2017-12-06] MEDS: HYDROMORPHONE HCL INJ/PF 2 MG/ML AMPULE IV PRN ×9 (00:04→23:35)
[2017-12-06] MEDS ORDERED: CEFTRIAXONE 2 GM/D5W RTU 2 GM/50 ML RTUPB IV ONE (01:19)
[2017-12-06] MEDS: DEXAMETHASONE SOD PHOS INJ 10 MG/1 ML VIAL IV SCH ×3 (01:45→18:59)
[2017-12-06] MEDS ORDERED: FENTANYL 12 MCG/HR PATCH.TD72 TD ONE (09:38)
[2017-12-06] MEDS ORDERED: ATROPINE SULFATE 1% OPH SOLN 5 ML BOTTLE OD PRN (09:46)
[2017-12-06] MEDS ORDERED: SCOPOLAMINE HYDROBROMIDE 1.5 MG PATCH.TD72 TD SCH (10:00)
[2017-12-06] MEDS: FAMOTIDINE INJ/PF 20 MG/2 ML SDV IV SCH (10:20)
[2017-12-06] MEDS: LORAZEPAM INJ 2 MG/1 ML VIAL IV PRN ×3 (10:20→22:31)
--- NOTE | 2017-12-06 15:19 | PDOC PROGRESS REPORT ---
Subjective Progress Note for:: 12/06/17 Subjective:: The patient is a 52-year-old female with past medical history significant for hyperlipidemia and stage IV pancreatic cancer with metastasis to the lungs, liver, and bone who was admitted on 11/29/17 for bibasilar pneumonia. The patient is seen on rounds with her family present. She is found resting in bed with head of bed elevated to 45 and on supplemental oxygen at 3 L/min. She is noted to be tachypneic with accessory muscle use and retractions; intermittent nato freitas breathing observed. She opens her eyes briefly when I say her name, but does not respond to questions or attempt to speak. They have no questions at this time. Reason For Visit: PNEUMONIA, STAGE IV PANCREATIC CANCER Physical Exam Vital Signs: Temp Pulse Resp BP Pulse Ox 98.4 F 111 H 9 L 114/73 96 12/03/17 19:35 12/05/17 08:14 12/05/17 08:14 12/03/17 19:35 12/05/17 08:14 Intake & Output 12/05/17 12/06/17 12/07/17 06:59 06:59 06:59 Intake Total 1533 586 Output Total 1275 Balance 1533 -689 Weight 73.3 kg General appearance: PRESENT: mild distress, well-developed, other - Anasarca Head exam: PRESENT: atraumatic, normocephalic Eye exam: PRESENT: conjunctiva pale, other - Dilated pupils Ear exam: PRESENT: normal external ear exam Mouth exam: PRESENT: dry mucosa Respiratory exam: PRESENT: accessory muscle use, decreased breath sounds - Poor inspiratory effort, retraction, rhonchi, wheezes, other - [place]-Fre[place] Cardiovascular exam: PRESENT: RRR, tachycardia. ABSENT: diastolic murmur, rubs , systolic murmur Vascular exam: PRESENT: pallor, other - delayed cap refill, cool extremities GI/Abdominal exam: PRESENT: ascites, diminished bowel sounds, distended, firm Rectal exam: PRESENT: deferred Extremities exam: PRESENT: +1 edema - BUE, +2 edema - BLE Neurological exam: PRESENT: other - Obtunded Skin exam: PRESENT: dry, intact, mottled, pallor, other - Cool extremities. ABSENT: cyanosis, rash Results Laboratory Results: 12/04/17 04:39 12/04/17 04:39 11/30/17 19:18 Blood Blood Culture - Final NO GROWTH IN 5 DAYS 11/30/17 19:08 Blood Blood Culture - Final NO GROWTH IN 5 DAYS Impressions: Chest X-Ray 11/28/17 20:26 IMPRESSION: Bibasilar airspace -nodular opacities. Small left pleural effusion. Abdomen/Pelvis CT 11/28/17 20:31 IMPRESSION: Moderate bilateral pleural effusions. Increased basilar pulmonary nodularity. 12 cm hypodense mass in the right lobe of the liver. Small amount of ascites and moderate pelvic free fluid. Multifocal osseous metastatic disease. Head CT 11/28/17 21:37 IMPRESSION: No acute intracranial findings. EVIDENCE OF ACUTE STROKE: NO. Abdomen Ultrasound 11/30/17 00:00 IMPRESSION: No intra-abdominal ascitic fluid is identified. Bilateral pleural effusions are identified. Assessment & Plan - Diagnosis (1) Pneumonia Qualifiers: Laterality: bilateral Is this a current diagnosis for this admission?: Yes Plan: Now on comfort measures. The patient is admitted to the medical floor. She is provided supplemental oxygen for comfort only. IV antibiotics discontinued. (2) Pancreatic cancer Qualifiers: Pancreatic malignancy location: unspecified Qualified Code(s): C25.9 - Malignant neoplasm of pancreas, unspecified Is this a current diagnosis for this admission?: Yes Plan: Grave prognosis; Anticipating the patient will pass away shortly. The patient is now obtunded with nato-freitas breathing. Now on comfort care. Hospice has been consulted; appreciate their assistance. IV maintenance fluids and antibiotics are discontinued. Duragesic 12 mcg patch; should take effect this afternoon/evening and ideally decrease the frequency of needing prn dilaudid. Continue Dilaudid 1 mg IV hourly as needed for pain or respiratory rate greater than 24. Zofran odt or IV Phenergan as needed for nausea. Continue candelaria catheter for comfort. Ativan IV as needed for anxiety. Tylenol suppository as needed for fever. Dulcolax suppository as needed for constipation. Scopolamine patch and as needed atropine drops for copious oral secretions. IV dexamethasone for wheezing and relief of pain. (3) Shortness of breath Is this a current diagnosis for this admission?: Yes Plan: Multifactorial secondary to bilateral pneumonia, lung nodules (likely pancreatic metastasis), bilateral pleural effusions, and COPD. Plan as above. (4) COPD (chronic obstructive pulmonary disease) Qualifiers: Emphysema type: unspecified Is this a current diagnosis for this admission?: Yes Plan: Plan as above. (5) GERD (gastroesophageal reflux disease) Is this a current diagnosis for this admission?: Yes Plan: Plan as above. (6) Constipation Is this a current diagnosis for this admission?: Yes Plan: Dulcolax suppository daily as needed. (7) Decreased urine output Is this a current diagnosis for this admission?: Yes Plan: Secondary to end-of-life transition. Candelaria catheter placed for patient comfort. All IV fluids are discontinued. Remaining plan as above. - Time Time Spent with patient: 25-34 minutes Medications reviewed and adjusted accordingly: Yes
[2017-12-07] MEDS: DEXAMETHASONE SOD PHOS INJ 10 MG/1 ML VIAL IV SCH ×2 (02:14→09:40)
[2017-12-07] MEDS: LORAZEPAM INJ 2 MG/1 ML VIAL IV PRN ×3 (02:14→10:56)
[2017-12-07] MEDS: HYDROMORPHONE HCL INJ/PF 2 MG/ML AMPULE IV PRN ×2 (04:02→09:40)
[2017-12-07] MEDS ORDERED: GLYCOPYRROLATE INJ 0.4 MG/2 ML VIAL IV PRN (09:08)
--- NOTE | 2017-12-08 07:42 | Death Summary ---
Summary Date : 12/07/17 Time of :: 11:50 Autopsy: No Resuscitation Status: Do Not Resuscitate - Final Diagnosis (1) Pancreatic cancer Is this a current diagnosis for this admission?: Yes (2) Shortness of breath Is this a current diagnosis for this admission?: Yes Hospital Course:: MELCHOR GARZA is a 52 year old female patient with stage IV pancreatic cancer with metastasis to the lungs, liver and bone. She presents with a chief complaint of generalized body weakness x 1 week, decreased appetite , poor oral intake and persistent dry cough. She has also associated dyspnea and dysphagia. Her blood work shows leukocytosis of 16,000 and her chest x-ray demonstrates bibasilar opacities. She was placed on empiric antibiotic therapy to treat a possible PNA. Over the course of her hospital stay, the patient began to show signs that she was succumbing to her metastatic disease. 48hrs after admission to [facility], the patient was becoming more tachypnic, breath sounds were wet, her leukocytosis worsened, and she was becoming more and more HYPOtensive. These concerns were discussed with the patient and family. The decision was made to pursue inpatient hospice. Family met with [facility] early on during her hospital stay. The patient was transitioned to comfort care during the last few days of her hospital stay. On 12/07/2017 at 1150 the patient . Family was at the bedside. Please refer to patient's chart for further details.
== END 2017-12-07 14:31 | disposition expired | DRG 194 ==
LOC: ER 20:17 → EH 11-29 00:43 → 5 11-29 02:20
PROVIDERS: ADMIT Internal Medicine; ATTEND Internal Medicine
DX: J18.9 Pneumonia, unspecified organism (principal); C25.9 Malignant neoplasm of pancreas, unspecified; C78.00 Secondary malignant neoplasm of unspecified lung; C78.7 Secondary malignant neoplasm of liver and intrahepatic bile duct; C79.51 Secondary malignant neoplasm of bone; K44.9 Diaphragmatic hernia without obstruction or gangrene; Z51.5 Encounter for palliative care; J44.9 Chronic obstructive pulmonary disease, unspecified; E78.5 Hyperlipidemia, unspecified; Z66 Do not resuscitate; K59.00 Constipation, unspecified; Z79.899 Other long term (current) drug therapy; Z91.040 Latex allergy status; Z90.49 Acquired absence of other specified parts of digestive tract; Z87.892 Personal history of anaphylaxis; Z91.041 Radiographic dye allergy status; Z87.891 Personal history of nicotine dependence; Z88.6 Allergy status to analgesic agent
CPT/HCPCS: 36415; 70450; 71045; 74176; 76705; 80048; 80053; 80202; 81001; 82140; 83605; 83690; 85025; 85027; 85610; 87040; 93005; 93010; 94640; 96365; 99285; J0692; J1100; J1170; J1940; J1956; J2060; J2405; J2550; J3370; J3480; J3490; J7030; J7060; J7120; J7620; S0028